=== PATIENT | female | born 1985 | race Caucasian/White ===

== ENCOUNTER 2024-07-02 11:48 | Inpatient (IN) | payer BC, SELFPAY ==
[2024-07-02] VITALS (48 sets, daily range): BP systolic 98–147; BP diastolic 65–97; PULSE 102–134; RESP 14–28; TEMP 36.7–37.1; O2SAT 91–100; BMI 25.7; BMI 25.4
--- NOTE | 2024-07-02 13:08 | CT_ITS ---
WS: [id number] CT ABDOMEN AND PELVIS WITH CONTRAST HISTORY: hx of nec pancreatitis TECHNIQUE: Imaging performed of the abdomen and pelvis with IV contrast. Single phase imaging of the abdomen. Coronal and sagittal reformats are submitted. All CT scans at [facility] use at [address] one of these dose optimization techniques: automated exposure control; mA and/or kV adjustment per patient size (includes targeted exams where dose is matched to clinical indication); or iterative re construction. IV CONTRAST: Omnipaque 350; 100 mL IV. Oral contrast: No DLP: 504.83 mGy.cm COMPARISON: None available. Lower thorax: Volume loss and atelectasis at the lung bases. There is mild pleural thickening at the LEFT base and a tiny amount of fluid. Heart is normal size. No hiatal hernia. Liver/biliary system: Hepatic steatosis. Intrahepatic biliary air. Gallbladder: Prior cholecystectomy. There is a stent along the common bile duct. Pancreas: Atrophy. There are a few very tiny cystic areas along the pancreatic duct. The pancreatic d uct is very mildly prominent. No mass identified. Tiny fluid collection posterior to the distal pancr eatic tail measures 1.1 x 1.3 cm. Spleen: Normal size spleen. No mass or infarct. Adrenal glands: Normal RIGHT adrenal gland. LEFT adrenal gland appears normal. Right kidney: RIGHT kidney is normal size. There are a few tiny cortical hypodensities. There is emilia ed soft tissue thickening in the retroperitoneum. The thickening is along the anterior and posterior pararenal fascia and along the lateroconal fascia. There is a percutaneous drainage catheter entering anterior to the RIGHT kidney with the catheter extending inferiorly to terminate in the presacral re gion. There is continued soft tissue thickening with distortion of the normal architecture of the RIG HT psoas muscle and a small amount of fluid. Left kidney: Negative. There is mild soft tissue thickening along the along the lateral conal fascia and the posterior pararenal fascia. There is a prior tract in the soft tissues posterior to the LEFT kidney with no drainage catheter present. Aorta: Normal. Lymphadenopathy: There are a few mildly hypervascular lymph nodes in the RIGHT pelvis along the ingui nal region and anterior pelvis. These are probably reactive. Free fluid: There is a small amount of free fluid in the pelvis. GI tract: Nondistended stomach. By history of prior gastric bypass. Mildly dilated small bowel loops with fluid. Small bowel loops are measuring up to 2.3 cm. At this time there is no high-grade obstruc tion. Several of the small bowel loops are closely associated with soft tissue thickening in extendin g along the paracolic gutter into the pelvis. Abdominal wall: Postsurgical changes along the anterior abdominal wall. Additional prior surgical or drainage defects along the RIGHT lateral abdominal wall. Pelvis: Mild soft tissue thickening extending along the RIGHT pelvis with presacral soft tissue thick ening. Within the soft tissue thickening is a pigtail catheter. This is a catheter that enters over t he RIGHT lateral abdomen. Uterus is anteverted. There is a small amount of free fluid along the tract . Several small low-attenuation lesions within the uterus. These may be fibroids. Bones: Unremarkable. CT/CT abdomen pelvis w con* [id number] IMPRESSION: 1. No prior studies are available and very limited surgical or clinical histor y concerning this complicated CT evaluation. 2. Prior cholecystectomy with a small amount of pneumobilia. 3. Atrophic pancreas. Probably prior episodes of pancreatitis. No acute pancre atitis. There is a very tiny fluid like collection close to the posterior pancr eas measuring 1.1 x 1.3 cm which may be the residual of a pseudocyst. This appe ars to be a benign collection. 4. There is a common bile duct stent. No significant intrahepatic duct dilatat ion. 5. External drainage catheter begins along the RIGHT lateral abdominal wall wi th the catheter extending deep into the pelvis. Catheter is coiled in the freda cral space. Adjacent to the pigtail catheter is complex soft tissue thickening but no definite abscess. 6. There is marked soft tissue thickening in the RIGHT anterior and posterior pararenal fascia with extensive soft tissue thickening extending along the RIGH T psoas muscle. Loss of the normal architecture of the RIGHT psoas muscle with scarring extending into the pelvis. 7. Mild LEFT pararenal fascial thickening. 8. Small LEFT pleural effusion. 9. Adverse change or improvement cannot be determined without prior imaging st udies.
--- NOTE | 2024-07-02 13:11 | W.ED.ABDPA2 ---
Documented by User: Naga Blank 07/03/24 06:22 HPI - Abdominal Pain General: Chief Complaint: Fever Stated Complaint: Fever Time Seen by Provider: 07/02/24 12:17 Source: patient and family Mode of arrival: ambulatory Limitations: no limitations History of Present Illness: This patient presented to the emergency department with fever and increased abdominal pain. She has very complicated history. 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 This resulted in a very prolonged hospital stay at the [facility] then subsequently at [facility] in [place]. She has been in the hospital off and on with various complications from her procedure which is resulted in resection of her pancreas with indwelling drain to the pancreatic bed as well as a other drain in her left flank. She was subsequently transferred to long-term care for rehabilitation and has been home for approximately 2 weeks. Last night she developed fever and increased heart rate and increasing abdominal pain. There is no other symptoms to include cough dysuria sore throat etc. MD elicited complaint: abdominal pain Associated Symptoms: Reports chills and fever(s); Denies diarrhea, dysuria, nausea and vomiting Related Data Home Medications Medication Instructions Recorded Confirmed acetaminophen 325 mg capsule 650 mg PO QID PRN pain or fever 07/02/24 07/02/24 (Tylenol) apixaban 5 mg tablet (Eliquis) 5 mg PO DAILY 07/02/24 07/02/24 furosemide 20 mg tablet 20 mg PO DAILY PRN LOWER 07/02/24 07/02/24 EXTREMITIES potassium chloride 20 mEq 20 meq PO DAILY 07/02/24 07/02/24 tablet,extended release promethazine 12.5 mg tablet 12.5 mg PO PRN PRN Nausea And 07/02/24 07/02/24 Vomiting sennosides 8.6 mg-docusate sodium 1 tab PO PRN PRN Constipation 07/02/24 07/02/24 50 mg tablet (Senexon-S) venlafaxine 150 mg 150 mg PO DAILY 07/02/24 07/02/24 capsule,extended release 24 hr venlafaxine 150 mg 150 mg PO DAILY 07/02/24 07/02/24 capsule,extended release 24 hr Allergies Allergy/AdvReac Type Severity Reaction Status Date / Time gabapentin Allergy Unknown Verified 07/02/24 11:58 benzoyl peroxide AdvReac Mild unknown Verified 07/02/24 11:58 Review of Systems Const: Reports: fever(s) and chills ENMT: Denies: throat pain, odynophagia, nasal discharge or nasal congestion Card: Denies: chest pain, palpitations or irregular heart rhythm Resp: Denies: dyspnea, productive cough or non-productive cough GI: Denies: abdominal pain, nausea, vomiting or diarrhea : Denies: flank pain, difficulty voiding, dysuria or urinary frequency Musc: Denies: neck pain, back pain, extremity pain or extremity swelling Skin/Breast: Denies: rash or pruritus Neuro: Denies: numbness in extremities or weakness in extremities Endo: Denies: polyuria or polydipsia Syed/Lymph: Denies: easy bruising or easy bleeding All/Imm: Denies: urticaria PFSH ED PFSH: Medical History History of biliary stent insertion Anxiety and depression Surgical History History of pancreatectomy History of bariatric surgery Family History Other CAD (coronary artery disease) Cancer Diabetes Social History Smoking and tobacco/nicotine status: never used tobacco/nicotine Alcohol intake: never Substance/Drug Use: never Physical Exam Narrative: EXAM NARRATIVE: He is alert appears to be in no acute distress and cooperative during the intake evaluation Const: COMMON NORMALS: patient oriented x3 and alert GENERAL APPEARANCE: cooperative HENMT: COMMON NORMALS: Normal nasal mucous membranes and turbinates present, moist oral mucous membranes and oropharynx normal FACE & SINUS: normal facial exam NOSE: Normal nasal mucous membranes and turbinates present Eye: COMMON NORMALS: Equal, round and reactive pupils present, EOMs intact bilaterally and conjunctivae normal CONJUNCTIVA: Yes conjunctivae normal PUPIL: Yes Equal, round and reactive pupils present Neck/C-Spine: COMMON NORMALS: full ROM, no lymphadenopathy, supple and no meningeal signs Resp: COMMON NORMALS: normal respiratory effort, No retractions, No use of accessory muscles and clear to auscultation bilaterally AUSCULTATION: clear to auscultation bilaterally Cardio: COMMON NORMALS: regular rhythm, No murmurs present (Cardio) and Peripheral pulses 2+ throughout RATE: tachycardic RHYTHM: regular rhythm PERIPHERAL PULSES: Peripheral pulses 2+ throughout GI: OTHER: Abdominal examination reveals evidence of previous midline incision with a dressing over the midportion of her upper abdominal incision. She also has a drain in her left flank which is draining minimal amount of serous fluid. She also has a drain in her right upper quadrant which is draining yellowish fluid which appears to be serous in nature without any obvious sediment. : COMMON NORMALS: Yes no CVA tenderness BLADDER/KIDNEY EXAM: Yes no CVA tenderness Back/Pelvis: COMMON NORMALS: no CVA tenderness, thoracic and lumbar spine normal to inspection, no thoracic nor lumbar tenderness and thoraco-lumbar ROM normal Extremity: COMMON NORMALS: normal to inspection, full ROM, capillary refill normal, no calf tenderness and no pedal edema Neuro: COMMON NORMALS: patient oriented x3, moves all extremities and no focal motor deficits SENSORIUM/ORIENTATION: Yes alert MENINGEAL SIGNS: Yes no meningeal signs Psych: COMMON NORMALS: mental status grossly normal Skin: COMMON NORMALS: turgor normal, no jaundice, no petechiae and no mottling GENERAL SKIN EXAM: turgor normal Course Reevaluation(s): Reevaluation #1: Patient remains clinically stable albeit still remains tachycardic but still receiving IV fluids and is receiving a loading dose of meropenem. Initially this was ordered prior to the return of the urinalysis due to her history of necrotizing pancreatitis. Time: 16:47 Reevaluation #2: Calls placed at [facility] for consultation regarding this patient's imaging and other factors which may contribute to whether this patient needs to be transferred to that facility or can remain at this facility for care for her pyelonephritis. Patient will be turned over to overnight emergency department physician for disposition. Time: 18:10 Vital Signs: Vital signs: Vital Signs Temperature 99.1 F 07/03/24 04:30 Pulse Rate 124 H 07/03/24 06:02 Respiratory Rate 24 H 07/03/24 04:00 Blood Pressure 122/88 07/03/24 04:00 Pulse Oximetry 100 07/03/24 04:00 Oxygen Delivery Me thod Nasal Cannula 07/03/24 04:30 Oxygen Flow Rate 2 07/03/24 04:30 MDM - Abdominal Pain Medical Decision Making Patient presented to the emergency department as per the HPI with a history of fevers and back pain. Longstanding history of multiple surgeries for necrotizing pancreatitis. Workup initiated to evaluate for potential causes of fever and tachycardia to include urinary tract infection intra-abdominal infection other potential causes. Did not display any symptoms of upper respiratory infection, pharyngitis, cough etc. at the time of the initial evaluation. Imaging was obtained as well as ancillary studies urinalysis etc. Due to her complicated history consultations were obtained at the attending staff from [facility] regarding her current clinical condition and comparison with prior interactions at that facility. Patient presenting here and does have acute cystitis along with likely cellulitis hypomagnesia hypokalemia did attempt to transfer to [facility] place her on waiting list and did speak to hospitalist here who will admit at this time. Lab Data I reviewed the patient's lab results. 07/02/24 13:23 07/02/24 21:02 Labs/Radiology: Radiology Impressions Abdomen/Pelvis CT 07/02/24 13:08 IMPRESSION: 1. No prior studies are available and very limited surgical or clinical history concerning this complicated CT evaluation. 2. Prior cholecystectomy with a small amount of pneumobilia. 3. Atrophic pancreas. Probably prior episodes of pancreatitis. No acute pancreatitis. There is a very tiny fluid like collection close to the posterior pancreas measuring 1.1 x 1.3 cm which may be the residual of a pseudocyst. This appears to be a benign collection. 4. There is a common bile duct stent. No significant intrahepatic duct dilatation. 5. External drainage catheter begins along the RIGHT lateral abdominal wall with the catheter extending deep into the pelvis. Catheter is coiled in the presacral space. Adjacent to the pigtail catheter is complex soft tissue thickening but no definite abscess. 6. There is marked soft tissue thickening in the RIGHT anterior and posterior pararenal fascia with extensive soft tissue thickening extending along the RIGHT psoas muscle. Loss of the normal architecture of the RIGHT psoas muscle with scarring extending into the pelvis. 7. Mild LEFT pararenal fascial thickening. 8. Small LEFT pleural effusion. 9. Adverse change or improvement cannot be determined without prior imaging studies. Femur CT 07/02/24 20:07 IMPRESSION: 1. Mild right hip edema, otherwise no acute right lower extremity abnormality. 2. Redemonstration of the dense intraperitoneal fluid extending into the pelvis with surgical drain in place. Laboratory Results WBC 14.53 10^3/uL (3.29-11.43) H 07/02/24 13:23 RBC 3.54 10^6/uL (3.85-5.65) L 07/02/24 13:23 Hgb 11.00 g/dL (11.27-16.99) L 07/02/24 13:23 Hct 34.9 % (36-47) L 07/02/24 13:23 MCV 98.6 fl (85-98) H 07/02/24 13:23 MCH 31.1 pg (27-33) 07/02/24 13:23 MCHC 31.5 g/dL (30-55) 07/02/24 13:23 RDW 14.3 % (12.1-15.1) 07/02/24 13:23 Plt Count 425 10^3/cmm (157-399) H 07/02/24 13:23 MPV 9.0 fL (7.4-10.4) 07/02/24 13:23 Neut % (Auto) 91.0 % 07/02/24 13:23 Lymph % (Auto) 5.5 % 07/02/24 13:23 Bland % (Auto) 2.8 % 07/02/24 13:23 Eos % (Auto) 0.0 % 07/02/24 13:23 Baso % (Auto) 0.1 % 07/02/24 13:23 Neut # (Auto) 13.22 10^3/uL (1.8-7.7) H 07/02/24 13:23 Lymph # (Auto) 0.8 10^3/uL (0.8-4.8) 07/02/24 13:23 Bland # (Auto) 0.4 10^3/uL (0.2-0.9) 07/02/24 13:23 Eos # (Auto) 0.0 10^3/uL (0.0-0.8) 07/02/24 13:23 Baso # (Auto) 0.0 10^3/uL (0.0-0.1) 07/02/24 13:23 Nucleated RBC % (auto) 0 % 07/02/24 13:23 Nucleated RBCs # 0.0 /100WBC 07/02/24 13:23 ESR 42 mm/hr (0-15) H 07/02/24 13:23 Sodium 137 mmol/L (136-145) 07/02/24 13:23 Potassium 2.8 mmol/L (3.5-5.1) L* 07/02/24 19:12 Chloride 95 mmol/L (98-107) L 07/02/24 13:23 Carbon Dioxide 30 mmol/L (22-29) H 07/02/24 13:23 Anion Gap 14.6 (5-19) 07/02/24 13:23 BUN 10 mg/dL (6-20) 07/02/24 13:23 Creatinine 0.5 mg/dL (0.5-0.9) 07/02/24 13:23 GFR Calculation 137.4 mL/min (90-130) H 07/02/24 13:23 Glucose 105 mg/dL (65-115) 07/02/24 13:23 Calculated Osmolality 283 mOsm/kg (285-295) L 07/02/24 13:23 Lactic Acid 3.9 mmol/L (0.5-2.2) H 07/02/24 13:23 Lactic Acid (Sepsis) 2.5 mmol/L (0.5-2.2) H 07/02/24 16:55 Calcium 7.8 mg/dL (8.5-10.5) L 07/02/24 13:23 Magnesium 1.0 mg/dL (1.7-2.3) L 07/02/24 13:23 Total Bilirubin 0.4 mg/dL (0.15-1.2) 07/02/24 13:23 AST 40 U/L (0-32) H 07/02/24 13:23 ALT 24 U/L (0-33) 07/02/24 13:23 Alkaline Phosphatase 143 U/L (35-105) H 07/02/24 13:23 Creatine Kinase 19 U/L (26-192) L 07/02/24 19:12 C-Reactive Protein 186.8 mg/L (0.0-4.9) H 07/02/24 19:12 Total Protein 6.9 g/dL (6.6-8.7) 07/02/24 13:23 Albumin 2.7 g/dL (3.5-5.2) L 07/02/24 13:23 Globulin 4.2 g/dL (1.3-4.6) 07/02/24 13:23 Lipase 17 U/L (13-60) 07/02/24 13:23 Procalcitonin 0.26 ng/mL (0-0.5) 07/02/24 19:12 HCG, Qual Negative (Negative) 07/02/24 15:37 Urine Color Yellow (Yellow) 07/02/24 15:37 Urine Appearance Cloudy (CLEAR) A 07/02/24 15:37 Urine pH 7.0 (5-7) 07/02/24 15:37 Ur Specific Cable 1.045 (1.005-1.030) H 07/02/24 15:37 Urine Protein 1+ (Negative) A 07/02/24 15:37 Urine Glucose (UA) Negative (Normal) 07/02/24 15:37 Urine Ketones Negative (Negative) 07/02/24 15:37 Urine Blood Trace (Negative) A 07/02/24 15:37 Urine Nitrate Negative (Negative) 07/02/24 15:37 Urine Bilirubin Negative (Negative) 07/02/24 15:37 Urine Urobilinogen 1.0 mg/dL (Negative) 07/02/24 15:37 Ur Leukocyte Esterase 2+ (Negative) A 07/02/24 15:37 Urine RBC 0-2 /hpf (0-2) 07/02/24 15:37 Urine WBC >100 /hpf (0-5) H 07/02/24 15:37 Ur Squamous Epith Cells 0-5 /hpf (0-5) 07/02/24 15:37 Amorphous Sediment Not Reportable 07/02/24 15:37 Urine Bacteria 4+ /hpf (NONE) H 07/02/24 15:37 Hyaline Casts 2.87 /lpf 07/02/24 15:37 SARS-CoV-2 Ag (Rapid) negative (Negative) 07/02/24 14:00 EKG Data EKG 1: I personally reviewed and interpreted this EKG as follows: Interpretation: Resting EKG reveals ventricular rate of 120 bpm consistent with sinus tachycardia. She has a normal GA interval, QRS duration, corrected QT interval. Normal axis. She has some nonspecific ST-T wave flattening. Discharge Plan Discharge Patient Disposition: Admitted As Inpatient Admit Provider: Manuelito Zuñiga Clinical Impression: Pyelonephritis, Hypomagnesemia, Hypokalemia Condition: Stable Coding Level of Care Code ED Title Vehicle Service Attendant for [employer] Fwd Documented by User: Jean-Paul Jay MD 07/02/24 22:29 HPI - Abdominal Pain General: Chief Complaint: Fever Stated Complaint: Fever Time Seen by Provider: 07/02/24 12:17 Related Data Home Medications Medication Instructions Recorded Confirmed acetaminophen 325 mg capsule 650 mg PO QID PRN pain or fever 07/02/24 07/02/24 (Tylenol) apixaban 5 mg tablet (Eliquis) 5 mg PO DAILY 07/02/24 07/02/24 furosemide 20 mg tablet 20 mg PO DAILY PRN LOWER 07/02/24 07/02/24 EXTREMITIES potassium chloride 20 mEq 20 meq PO DAILY 07/02/24 07/02/24 tablet,extended release promethazine 12.5 mg tablet 12.5 mg PO PRN PRN Nausea And 07/02/24 07/02/24 Vomiting sennosides 8.6 mg-docusate sodium 1 tab PO PRN PRN Constipation 07/02/24 07/02/24 50 mg tablet (Senexon-S) venlafaxine 150 mg 150 mg PO DAILY 07/02/24 07/02/24 capsule,extended release 24 hr venlafaxine 150 mg 150 mg PO DAILY 07/02/24 07/02/24 capsule,extended release 24 hr Allergies Allergy/AdvReac Type Severity Reaction Status Date / Time gabapentin Allergy Unknown Verified 07/02/24 11:58 benzoyl peroxide AdvReac Mild unknown Verified 07/02/24 11:58 [facility] ED PFSH: Medical History History of biliary stent insertion Anxiety and depression Surgical History History of pancreatectomy History of bariatric surgery Family History Other CAD (coronary artery disease) Cancer Diabetes Social History Smoking and tobacco/nicotine status: never used tobacco/nicotine Alcohol intake: never Substance/Drug Use: never Course Vital Signs: Vital signs: Vital Signs Temperature 99.1 F 07/03/24 04:30 Pulse Rate 124 H 07/03/24 06:02 Respiratory Rate 24 H 07/03/24 04:00 Blood Pressure 122/88 07/03/24 04:00 Pulse Oximetry 100 07/03/24 04:00 Oxygen Delivery Me thod Nasal Cannula 07/03/24 04:30 Oxygen Flow Rate 2 07/03/24 04:30 MDM - Abdominal Pain Medical Decision Making Patient presented to the emergency department as per the HPI with a history of fevers and back pain. Longstanding history of multiple surgeries for necrotizing pancreatitis. Patient presenting here and does have acute cystitis along with likely cellulitis hypomagnesia hypokalemia did attempt to transfer to [facility] place her on waiting list and did speak to hospitalist here who will admit at this time. Lab Data 07/02/24 13:23 07/02/24 21:02 Labs/Radiology: Radiology Impressions Abdomen/Pelvis CT 07/02/24 13:08 IMPRESSION: 1. No prior studies are available and very limited surgical or clinical history concerning this complicated CT evaluation. 2. Prior cholecystectomy with a small amount of pneumobilia. 3. Atrophic pancreas. Probably prior episodes of pancreatitis. No acute pancreatitis. There is a very tiny fluid like collection close to the posterior pancreas measuring 1.1 x 1.3 cm which may be the residual of a pseudocyst. This appears to be a benign collection. 4. There is a common bile duct stent. No significant intrahepatic duct dilatation. 5. External drainage catheter begins along the RIGHT lateral abdominal wall with the catheter extending deep into the pelvis. Catheter is coiled in the presacral space. Adjacent to the pigtail catheter is complex soft tissue thickening but no definite abscess. 6. There is marked soft tissue thickening in the RIGHT anterior and posterior pararenal fascia with extensive soft tissue thickening extending along the RIGHT psoas muscle. Loss of the normal architecture of the RIGHT psoas muscle with scarring extending into the pelvis. 7. Mild LEFT pararenal fascial thickening. 8. Small LEFT pleural effusion. 9. Adverse change or improvement cannot be determined without prior imaging studies. Femur CT 07/02/24 20:07 IMPRESSION: 1. Mild right hip edema, otherwise no acute right lower extremity abnormality. 2. Redemonstration of the dense intraperitoneal fluid extending into the pelvis with surgical drain in place. Laboratory Results WBC 14.53 10^3/uL (3.29-11.43) H 07/02/24 13:23 RBC 3.54 10^6/uL (3.85-5.65) L 07/02/24 13:23 Hgb 11.00 g/dL (11.27-16.99) L 07/02/24 13:23 Hct 34.9 % (36-47) L 07/02/24 13:23 MCV 98.6 fl (85-98) H 07/02/24 13:23 MCH 31.1 pg (27-33) 07/02/24 13:23 MCHC 31.5 g/dL (30-55) 07/02/24 13:23 RDW 14.3 % (12.1-15.1) 07/02/24 13:23 Plt Count 425 10^3/cmm (157-399) H 07/02/24 13:23 MPV 9.0 fL (7.4-10.4) 07/02/24 13:23 Neut % (Auto) 91.0 % 07/02/24 13:23 Lymph % (Auto) 5.5 % 07/02/24 13:23 Bland % (Auto) 2.8 % 07/02/24 13:23 Eos % (Auto) 0.0 % 07/02/24 13:23 Baso % (Auto) 0.1 % 07/02/24 13:23 Neut # (Auto) 13.22 10^3/uL (1.8-7.7) H 07/02/24 13:23 Lymph # (Auto) 0.8 10^3/uL (0.8-4.8) 07/02/24 13:23 Bland # (Auto) 0.4 10^3/uL (0.2-0.9) 07/02/24 13:23 Eos # (Auto) 0.0 10^3/uL (0.0-0.8) 07/02/24 13:23 Baso # (Auto) 0.0 10^3/uL (0.0-0.1) 07/02/24 13:23 Nucleated RBC % (auto) 0 % 07/02/24 13:23 Nucleated RBCs # 0.0 /100WBC 07/02/24 13:23 ESR 42 mm/hr (0-15) H 07/02/24 13:23 Sodium 137 mmol/L (136-145) 07/02/24 13:23 Potassium 2.8 mmol/L (3.5-5.1) L* 07/02/24 19:12 Chloride 95 mmol/L (98-107) L 07/02/24 13:23 Carbon Dioxide 30 mmol/L (22-29) H 07/02/24 13:23 Anion Gap 14.6 (5-19) 07/02/24 13:23 BUN 10 mg/dL (6-20) 07/02/24 13:23 Creatinine 0.5 mg/dL (0.5-0.9) 07/02/24 13:23 GFR Calculation 137.4 mL/min (90-130) H 07/02/24 13:23 Glucose 105 mg/dL (65-115) 07/02/24 13:23 Calculated Osmolality 283 mOsm/kg (285-295) L 07/02/24 13:23 Lactic Acid 3.9 mmol/L (0.5-2.2) H 07/02/24 13:23 Lactic Acid (Sepsis) 2.5 mmol/L (0.5-2.2) H 07/02/24 16:55 Calcium 7.8 mg/dL (8.5-10.5) L 07/02/24 13:23 Magnesium 1.0 mg/dL (1.7-2.3) L 07/02/24 13:23 Total Bilirubin 0.4 mg/dL (0.15-1.2) 07/02/24 13:23 AST 40 U/L (0-32) H 07/02/24 13:23 ALT 24 U/L (0-33) 07/02/24 13:23 Alkaline Phosphatase 143 U/L (35-105) H 07/02/24 13:23 Creatine Kinase 19 U/L (26-192) L 07/02/24 19:12 C-Reactive Protein 186.8 mg/L (0.0-4.9) H 07/02/24 19:12 Total Protein 6.9 g/dL (6.6-8.7) 07/02/24 13:23 Albumin 2.7 g/dL (3.5-5.2) L 07/02/24 13:23 Globulin 4.2 g/dL (1.3-4.6) 07/02/24 13:23 Lipase 17 U/L (13-60) 07/02/24 13:23 Procalcitonin 0.26 ng/mL (0-0.5) 07/02/24 19:12 HCG, Qual Negative (Negative) 07/02/24 15:37 Urine Color Yellow (Yellow) 07/02/24 15:37 Urine Appearance Cloudy (CLEAR) A 07/02/24 15:37 Urine pH 7.0 (5-7) 07/02/24 15:37 Ur Specific Cable 1.045 (1.005-1.030) H 07/02/24 15:37 Urine Protein 1+ (Negative) A 07/02/24 15:37 Urine Glucose (UA) Negative (Normal) 07/02/24 15:37 Urine Ketones Negative (Negative) 07/02/24 15:37 Urine Blood Trace (Negative) A 07/02/24 15:37 Urine Nitrate Negative (Negative) 07/02/24 15:37 Urine Bilirubin Negative (Negative) 07/02/24 15:37 Urine Urobilinogen 1.0 mg/dL (Negative) 07/02/24 15:37 Ur Leukocyte Esterase 2+ (Negative) A 07/02/24 15:37 Urine RBC 0-2 /hpf (0-2) 07/02/24 15:37 Urine WBC >100 /hpf (0-5) H 07/02/24 15:37 Ur Squamous Epith Cells 0-5 /hpf (0-5) 07/02/24 15:37 Amorphous Sediment Not Reportable 07/02/24 15:37 Urine Bacteria 4+ /hpf (NONE) H 07/02/24 15:37 Hyaline Casts 2.87 /lpf 07/02/24 15:37 SARS-CoV-2 Ag (Rapid) negative (Negative) 07/02/24 14:00 All radiology interpretation(s) finalized by discharge Critical Care Time Critical Care Time: Critical Care Time: Yes Total Critical Care Time: 50 Attestation: The high probability of a clinically significant, sudden or life threatening deterioration of the patient's gu system(s) required my full and direct attention, intervention and personal management. The critical care time is as shown. 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
[2024-07-02 13:35] LABS: Basophils % 0.1 %; Hematocrit 34.9 % (36-47); Lymphocytes # 0.8 10^3/uL (0.8-4.8); Lymphocytes % 5.5 %; Mean Corpuscular HGB Conc 31.5 g/dL (30-55); Mean Corpuscular Hemoglobin 31.1 pg (27-33); Mean Corpuscular Volume 98.6 fl (85-98); Monocytes # 0.4 10^3/uL (0.2-0.9); Monocytes % 2.8 %; Neutrophils # 13.22 10^3/uL (1.8-7.7); Nucleated Red Blood Cells % 0 %; Platelet Count 425 10^3/cmm (157-399); Red Blood Count 3.54 10^6/uL (3.85-5.65); Red Cell Distribution Width 14.3 % (12.1-15.1); White Blood Count 14.53 10^3/uL (3.29-11.43)
[2024-07-02] MEDS: HYDROmorphone 1 mg/mL INJ 1 mL 0.5 MG IVP (13:44)
[2024-07-02] MEDS: lactated ringers 1,000 ML 999 ML IV ×2 (13:46→16:02)
[2024-07-02] MEDS: metoclopramide 5 mg/mL SDV 2 mL IVP (13:47)
[2024-07-02 13:54] LABS: Lactic Sepsis W/Reflex 3.9 mmol/L (0.5-2.2)
[2024-07-02 13:55] LABS: Alanine Aminotransferase 24 U/L (0-33); Albumin Level 2.7 g/dL (3.5-5.2); Alkaline Phosphatase 143 U/L (35-105); Anion Gap 14.6 (5-19); Aspartate Amino Transferase 40 U/L (0-32); Blood Urea Nitrogen 10 mg/dL (6-20); Calcium 7.8 mg/dL (8.5-10.5); Carbon Dioxide 30 mmol/L (22-29); Chloride 95 mmol/L (98-107); Creatinine Clr Calc Pharmacy 148.6226; Globulin 4.2 g/dL (1.3-4.6); Glomerular Filtration Rate 137.4 mL/min (90-130); Glucose 105 mg/dL (65-115); Lipase 17 U/L (13-60); Osmolality Calculated 283 mOsm/kg (285-295); Sodium 137 mmol/L (136-145); Total Bilirubin 0.4 mg/dL (0.15-1.2); Total Protein 6.9 g/dL (6.6-8.7)
[2024-07-02 13:56] LABS: Potassium 2.6 mmol/L (3.5-5.1)
[2024-07-02] MEDS: iohexol 350 mg/mL 500 mL Btl (per mL) IV ×2 (14:12→22:03)
[2024-07-02 14:25] LABS: SARS Covid-2 Antigen negative (Negative)
--- NOTE | 2024-07-02 15:16 | ECG_ITS ---
[facility] Test Date: 2024-07-02 Pat Name: Maddie Darby Department: Room: Gender: Female Retail Beauty Specialist: : 1985 Requested By: Naga Blank Order Number: [id number] Samuel MD: ALLY GOVEA Measurements Intervals [place] Rate: 128 P: 26 MS: 118 QRS: 64 QRSD: 72 T: 46 QT: 334 QTc: 488 Interpretive Statements SINUS TACHYCARDIA WITH SHORT MS INTERVAL NONSPECIFIC T-WAVE ABNORMALITY ABNORMAL RHYTHM ECG No previous ECG available for comparison Electronically Signed On 07-03-2024 00:11:34 CDT by ALLY GOVEA [email or web address]
[2024-07-02 15:17] LABS: Reflex Lactate Order REFLEX LACTIC ORDERD
[2024-07-02 15:46] LABS: HCG Qualitative Urine. Negative (Negative)
[2024-07-02] MEDS: potassium bicarb 25 mEq Tablet 50 MEQ PO (15:47)
[2024-07-02 15:58] LABS: Bilirubin Urine Negative (Negative); Blood Urine Trace (Negative); Glucose Urine UA Negative (Normal); Ketones Urine Negative (Negative); Leukocyte Esterase Urine 2+ (Negative); Nitrate Urine Negative (Negative); Protein Urine 1+ (Negative); Urine Appearance Cloudy (CLEAR); Urine Color Yellow (Yellow)
[2024-07-02 16:04] LABS: Add Urine Microscopic? YES; Bacteria Urine 4+ /hpf; Hyaline Casts Urine 2.87 /lpf; RBC Urine 0-2 /hpf (0-2); Squamous Epithelial Cell Urine 0-5 /hpf (0-5); WBC Urine >100 /hpf (0-5)
[2024-07-02 16:05] LABS: Specific Gravity, Urine 1.045 (1.005-1.030)
[2024-07-02 16:06] LABS: Add Urine Culture? Yes
[2024-07-02 17:24] LABS: Lactic Acid level (Lactate) 2.5 mmol/L (0.5-2.2)
[2024-07-02] MEDS: HYDROmorphone 1 mg/mL INJ 1 mL IVP ×3 (17:53→23:34)
[2024-07-02] MEDS: magnesium sulfate premix 2 GM/50 ML PIGGYBACK IV (17:53)
[2024-07-02] MEDS: meropenem 500 mg SDV IVP ×2 (17:53→23:01)
[2024-07-02] MEDS: acetaminophen 325 mg Tablet 650 MG PO (18:01)
--- NOTE | 2024-07-02 18:11 | XRR_ITS ---
PROCEDURE INFORMATION: Exam: XR Chest Exam date and time: 07/02/2024 6:15 PM Age: 39 years old Clinical indication: Fever TECHNIQUE: Imaging protocol: Radiologic exam of the chest. Views: 1 view. COMPARISON: CT abdomen pelvis w con* [id number] 07/02/2024 2:09 PM FINDINGS: Lungs: Unremarkable. No consolidation. Pleural spaces: Unremarkable. No pleural effusion. No pneumothorax. Heart/Mediastinum: Unremarkable. No cardiomegaly. Bones/joints: Unremarkable. XR/XR chest 1V portable [id number] IMPRESSION: No acute findings.
[2024-07-02] MEDS: vancomycin 1,000 MG in sodium chloride 0.9% 250 ML 250 MG IV (19:09)
[2024-07-02] MEDS: sodium chloride 0.9% 500 ML 999 ML IV (19:10)
[2024-07-02 19:35] LABS: Potassium 2.8 mmol/L (3.5-5.1)
[2024-07-02 19:37] LABS: Erythrocyte Sedimentation Rate 42 mm/hr (0-15)
[2024-07-02 19:48] LABS: C Reactive Protein 186.8 mg/L (0.0-4.9)
[2024-07-02 19:56] LABS: Procalcitonin 0.26 ng/mL (0-0.5)
--- NOTE | 2024-07-02 20:07 | CTR_ITS ---
PROCEDURE INFORMATION: Exam: CT Right Lower Extremity, Thigh Exam date and time: 07/02/2024 9:54 PM Age: 39 years old Clinical indication: Swelling, leg or foot; Prior surgery; Surgery date: 6+ months; Patient HX: Swelling and redness to RT hip extending down mid outer thigh. Peritoneal catheter drain in place for necrotizing pancreatitis. ; Additional info: Swelling, soft tissue thickening TECHNIQUE: Imaging protocol: CT of the right lower extremity with intravenous contrast was performed. Exam focused on the thigh. Radiation optimization: All CT scans at this facility use at least one of these dose optimization techniques: automated exposure control; mA and/or kV adjustment per patient size (includes targeted exams where dose is matched to clinical indication); or iterative reconstruction. Contrast material: OMNI 350; Contrast volume: 80 ml; Contrast route: INTRAVENOUS (IV); COMPARISON: CT abdomen pelvis w con* [id number] 07/02/2024 2:09 PM RADIATION DOSE METRICS: Total DLP (mGy-cm): 622.19 FINDINGS: Tubes, catheters and devices: Pigtail surgical drain extending into the pelvis. Bones/joints: Normal. No acute fracture or dislocation. Trace right knee effusion. Soft tissues: Mild skin thickening and subcutaneous edema in the right hip. Lymph nodes: Right iliac chain lymphadenopathy measuring up to 1.2 cm (series 3, image 35). Intraperitoneal space: Moderate free fluid extending into the pelvis. Urinary bladder: Contrast filled bladder. Reproductive: Hypodense nodularity in the myometrium measuring 1.4 x 1.4 cm (series 3, image 17) likely representing a fibroid. CT/CT femur RT w con [id number] IMPRESSION: 1. Mild right hip edema, otherwise no acute right lower extremity abnormality. 2. Redemonstration of the dense intraperitoneal fluid extending into the pelvis with surgical drain in place.
[2024-07-02 20:12] LABS: Creatine Phosphokinase 19 U/L (26-192)
[2024-07-02] MEDS: sodium chloride 0.9% 1,000 ML 75 ML IV (21:28)
[2024-07-02] MEDS: pantoprazole 40 mg SDV IVP (21:29)
--- NOTE | 2024-07-02 21:29 | P.HP_ITS ---
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 She had a prolonged hospital stay at [facility], then eventually transferred to [place], had pancreatic resection, she had a prolonged hospital stay at [facility] with multiple complications, complications including necrotizing fasciitis, resulting in drain placed into pancreatic bed, she was then transferred to long-term care [facility] in [place], she then had recurrent fevers and eventually transferred back to [place], had ERCP procedure done, with a biliary stent placed. She is now back at home, she tells me that she has been doing well for the last few weeks, she was on PEG tube feeds at 1 point, she is off PEG tube feeds, feeding orally. But in the last 24 hours she has had noticed that she started developing pain around her pancreatic drain site which she has never had before, increased erythema/tenderness/warmth at that site, and developing streaking erythema down her right hip, her right thigh, right groin, with erythema, tender, warmth, fevers, chills. She denies any dysuria, no hematuria, no flank pain, but does report increased urinary frequency. Denies any cough, no shortness of breath,. No neck pain, neck stiffness no headache no blurry vision. She tells me that around the pancreatic drain site, she has had increased drainage, purulent drainage her at bedside who does regular dressing changes, tells me that in the last 24 hours she has had increased purulent drainage around that site, looking more dark and brown. She also reports abdominal pain feeling nauseous, poor appetite. No diarrhea reported. Patient family tells me that the drain site, the fluid has been more purulent, more feculent in appearance -WBC count 14.53, platelet count 425 ESR 42, CRP 186, Pro-Tate within normal limits lipase within normal limits alk phos 143, AST 40, ALT 24 CPK 19 lactic acid 3.9 reflux to 2.5, urine was cloudy, with leukocyte Estrace and greater than [address] scan abdomen pelvis CT/CT abdomen pelvis w con* [id number] IMPRESSION: 1. No prior studies are available and very limited surgical or clinical history concerning this complicated CT evaluation. 2. Prior cholecystectomy with a small amount of pneumobilia. 3. Atrophic pancreas. Probably prior episodes of pancreatitis. No acute pancreatitis. There is a very tiny fluid like collection close to the posterior pancreas measuring 1.1 x 1.3 cm which may be the residual of a pseudocyst. This appears to be a benign collection. 4. There is a common bile duct stent. No significant intrahepatic duct dilatation. 5. External drainage catheter begins along the RIGHT lateral abdominal wall with the catheter extending deep into the pelvis. Catheter is coiled in the presacral space. Adjacent to the pigtail catheter is complex soft tissue thickening but no definite abscess. 6. There is marked soft tissue thickening in the RIGHT anterior and posterior pararenal fascia with extensive soft tissue thickening extending along the RIGHT psoas muscle. Loss of the normal architecture of the RIGHT psoas muscle with scarring extending into the pelvis. 7. Mild LEFT pararenal fascial thickening. 8. Small LEFT pleural effusion. 9. Adverse change or improvement cannot be determined without prior imaging studies. -ER provider spoke to [facility], Dr. Orville Black, who looked at prior studies, looked at images that were clouded over to [place], I was told by ER provider that there was no recommendation on transfer, that they felt there was no fluid to drain based on the CT scan results -Hospitals team was called for admission for concerns for UTI as a source -During my evaluation -Patient's major complaint was increased pain around her pancreatic drain site, with pain/erythema, swelling leading down the pancreatic drain site, along the right hip right inner thigh, right groin right buttocks. The site is quite erythematous, swollen, tender, with erythema, concerning for cellulitis, and given imaging findings as above concerning for deep tissue infection, given her prior history of necrotizing fasciitis, concerns for infection such as myositis, or deep tissue infection such as necrotizing fasciitis -Certainly the urine could be a source however the nitrites were negative, CT scan as above there was no radiographic evidence of pyelonephritis, as below Right kidney: RIGHT kidney is normal size. There are a few tiny cortical hypodensities. There is marked soft tissue thickening in the retroperitoneum. The thickening is along the anterior and posterior pararenal fascia and along the lateroconal fascia. There is a percutaneous drainage catheter entering anterior to the RIGHT kidney with the catheter extending inferiorly to terminate in the presacral region. There is continued soft tissue thickening with distortion of the normal architecture of the RIGHT psoas muscle and a small amount of fluid. Left kidney: Negative. There is mild soft tissue thickening along the along the lateral conal fascia and the posterior pararenal fascia. There is a prior tract in the soft tissues posterior to the LEFT kidney with no drainage catheter present. -No significant radiographic evidence of obstructive uropathy ? Based upon findings as above, I was worried about deep tissue infection, myositis, cellulitis, possible necrotizing fasciitis given her prior history -I had a detailed discussion with patient and her at bedside given her present findings, I would recommend for her to be transferred to a tertiary level center, given her complicated history, all her surgeries have been done at [place], and are limited availability here at [facility] we do not have GI we do not have hepatobiliary, and with her pancreatic drain in place, her case is quite complicated but I will certainly speak to [facility], and speak to our general surgery -Spoke to Jad FELDMAN, will have them look at their images, discussed my concerns for deep tissue infection, possible necrotizing fasciitis, ordered right hip CT, waiting a callback -Spoke to general surgery, Dr. Florentino, discussed my concerns discussed patient's presentation discussed CT scan findings, discussed her prior history, her current pancreatic drain, after discussing the case, he would also recommend for patient to be transferred to tertiary level center, concerns for possible bile leakage around drain site resulting in deep tissue infection, infection along fascial planes, possible necrotizing fasciitis she needs to be seen by her hepatobiliary team, general surgery, multidisciplinary team, team at [place], recommended transfer -I spoke to Dr. Orville Black -At [facility] -Discussed my concerns as above, discussed my concerns of her CT scan findings, her clinical examination, my overall concerns for deep tissue infection concerns for possible necrotizing fasciitis, discussed for my concerns around her pancreatic drain,, I think she needs better infection control potentially removal of pancreatic drain, IV antibiotics, discussion with her hepatobiliary team, possible surgical intervention, she is going to need a multidisciplinary team, which is not available here at [facility], discussed my concerns, - had reviewed images, he tells me that there is no fluid to drain, the drain is in the right position, he recommended IV antibiotics, and that currently there is no surgical intervention that is needed -I have voiced my concerns based on patient's clinical findings, CT scan findings, especially as she is starting to develop erythema developing down her right flank, down to her right thigh, concerns for deep tissue infection given CT scan findings of soft tissue thickening in the right anterior posterior pararenal fascia, with extensive soft tissue thickening extending along the right psoas muscle, loss of normal architecture of the right psoas muscle with scarring extending into the pelvis ? I feel that patient needs to be urgently seen by [facility], by hepatobiliary team, by physicians who have put in her drain, good infection control potentially drain removal, surgical intervention, a multidisciplinary team and on an urgent basis given morbidity mortality associated with deep tissue infections infection such as necrotizing fasciitis, and she is currently in the emergency room she is tachycardic, hypotensive, elevated lactic acid, she is septic, I believe she needs to be seen immediately, that delaying in her care would be associate with morbidity and mortality, would put patient at harm ? Dr. Nelson disagreed, he felt that patient does not need to come to [facility], there is nothing surgical that [facility] could offer, and that she needs IV antibiotics ? After extensive discussion with Dr. Nelson, I recommended urgent transfer for immediate evaluation, given my concerns as above, and our lack of subset specialty support here at [facility], in my discussions with general surgery, we do not have the multidisciplinary team the patient requires, given her present condition I am worried that she might develop significant morbidity mortality if she were to have delayed care -Nonetheless, patient was accepted Dr. Nelson, under Dr. Bhatia, however was placed on wait list for transfer -I spoke to the metal flow coordinator who is also on the line, and question this, patient is currently in the emergency room, and I would recommend ER to ER transfer given patient's present condition, patient's current illness, concerns for delay of care, bradycardia and mortality associated ? However I was told by metal flow coordinator that as patient is being admitted under Dr. Nelson care, they we will have to wait on the waiting list, ER to ER transfer is not possible -I voiced my concerns about this to metal flow coordinator, however I was told that patient will be placed on waiting list ? I spoke to patient and her about my concerns, my concerns for possible delay of care, morbidity and mortality associated, my concerns that patient needs a multidisciplinary team, needs more urgent evaluation, and that she is placed on a wait list, that could take some time before she would make it to [place] ? I also presented him the option of going to [facility] however they have declined ? After discussing with him the risks and benefits, for now they are okay with waiting to be transfer to [facility], okay with ICU admission, IV antibiotics, discussed risk and benefits, they voiced understanding, all questions were, agreed to proceed ? I also spoke to Dr. Yoselin Lucas to consult as there is concern for deep tissue infection, necrotizing fasciitis, will place patient on broad-spectrum antibiotic therapy monitor in ICU closely, monitor hemodynamics Review of Systems 2 Const: Reports: fever(s) and chills Card: Denies: chest pain Resp: Denies: dyspnea GI: Reports: abdominal pain and nausea : Reports: urinary frequency; Denies: flank pain, difficulty voiding or dysuria Musc: Reports: extremity pain and extremity swelling Skin/Breast: Reports: rash, erythema and skin pain Medications/Allergies Home Medications Medication Instructions Recorded Confirmed Last Taken Type acetaminophen 325 mg capsule 650 mg PO QID PRN pain or fever 07/02/24 07/02/24 07/02/24 05:00 History (Tylenol) apixaban 5 mg tablet (Eliquis) 5 mg PO DAILY 07/02/24 07/02/24 07/01/24 History furosemide 20 mg tablet 20 mg PO DAILY PRN LOWER 07/02/24 07/02/24 Unknown History EXTREMITIES potassium chloride 20 mEq 20 meq PO DAILY 07/02/24 07/02/24 07/01/24 History tablet,extended release promethazine 12.5 mg tablet 12.5 mg PO PRN PRN Nausea And 07/02/24 07/02/24 07/02/24 05:00 History Vomiting sennosides 8.6 mg-docusate sodium 1 tab PO PRN PRN Constipation 07/02/24 07/02/24 Unknown History 50 mg tablet (Senexon-S) venlafaxine 150 mg 150 mg PO DAILY 07/02/24 07/02/24 07/01/24 History capsule,extended release 24 hr venlafaxine 150 mg 150 mg PO DAILY 07/02/24 07/02/24 07/01/24 History capsule,extended release 24 hr Allergies Allergy/AdvReac Type Severity Reaction Status Date / Time gabapentin Allergy Unknown Verified 07/02/24 11:58 benzoyl peroxide AdvReac Mild unknown Verified 07/02/24 11:58 PFSH Acute 2 PFSH: Medical History History of biliary stent insertion Anxiety and depression Surgical History History of pancreatectomy History of bariatric surgery Family History Other CAD (coronary artery disease) Cancer Diabetes Social History Smoking and tobacco/nicotine status: never used tobacco/nicotine Alcohol intake: never Substance/Drug Use: never Vitals/I&O/Wt Last Vital Signs Temp 98.8 F 07/02/24 20:19 Pulse 113 H 07/02/24 21:05 Resp 17 07/02/24 21:05 BP 118/73 07/02/24 20:45 Pulse Ox 98 07/02/24 21:05 O2 Del Method Nasal Cannula 07/02/24 16:03 O2 Flow Rate 2 07/02/24 16:03 07/02/24 07/02/24 07/02/24 06:59 14:59 22:59 Intake Total 2049 Balance 2049 Weight last 48 hrs Weight 70.307 kg Physical Exam 2 Const: COMMON NORMALS: no acute distress and patient oriented x3 HENMT: COMMON NORMALS: normocephalic HEAD & SCALP: normocephalic Neck/C-Spine: COMMON NORMALS: no JVD Resp: COMMON NORMALS: normal respiratory effort, No retractions, No use of accessory muscles and clear to auscultation bilaterally AUSCULTATION: clear to auscultation bilaterally Cardio: COMMON NORMALS: no JVD, regular rate, regular rhythm, S1 normal heart sound present and S2 normal heart sound present RATE: regular rate RHYTHM: regular rhythm HEART SOUNDS: S1 normal heart sound present and S2 normal heart sound present GI: COMMON NORMALS: Normal to inspection, nondistended, normoactive bowel sounds present, Soft to palpation and non-tender Back/Pelvis: OTHER: External drainage catheter, right lateral abdominal wall, with surrounding erythema with purulent drainage Extremity: COMMON NORMALS: no calf tenderness and no pedal edema Neuro: COMMON NORMALS: patient oriented x3, CN's II-XII intact bilaterally and moves all extremities Psych: COMMON NORMALS: mental status grossly normal Skin: NARRATIVE SKIN EXAM: Edema, swelling, tenderness, extending from external drainage catheter, extending down the right flank, down to the right thigh, right hip, inner groin with erythema, swelling, tenderness Data 07/02/24 13:23 07/02/24 19:12 Micro: Microbiology 07/02/24 13:23 Blood Culture - Preliminary Blood SPECIMEN COLLECTED 07/02/24 13:27 Blood Culture - Preliminary Blood SPECIMEN COLLECTED A&P Assessment and plan (1) Cellulitis: (2) Sepsis: (3) UTI (urinary tract infection): Plan Cellulitis ? With concerns for myositis, deep tissue infection, possible necrotizing fasciitis ? With history of necrotizing fasciitis at surgical site ? Area of erythema extending from external catheter site, down to the right flank, right hip, right thigh, right inner groin -My concern is as patient has purulent drainage from her hepatobiliary drain, and the fluid that the hepatobiliary drain is putting out is more purulent more feculent appearing, she is potentially leaking bile along drain into subcutaneous soft tissue along drain site, resulting in cellulitis, deep tissue infection, infection along fascial plane ? CT scan Right kidney: RIGHT kidney is normal size. There are a few tiny cortical hypodensities. There is marked soft tissue thickening in the retroperitoneum. The thickening is along the anterior and posterior pararenal fascia and along the lateroconal fascia. There is a percutaneous drainage catheter entering anterior to the RIGHT kidney with the catheter extending inferiorly to terminate in the presacral region. There is continued soft tissue thickening with distortion of the normal architecture of the RIGHT psoas muscle and a small amount of fluid. Left kidney: Negative. There is mild soft tissue thickening along the along the lateral conal fascia and the posterior pararenal fascia. There is a prior tract in the soft tissues posterior to the LEFT kidney with no drainage catheter present. Aorta: Normal. Lymphadenopathy: There are a few mildly hypervascular lymph nodes in the RIGHT pelvis along the inguinal region and anterior pelvis. These are probably reactive. Free fluid: There is a small amount of free fluid in the pelvis. GI tract: Nondistended stomach. By history of prior gastric bypass. Mildly dilated small bowel loops with fluid. Small bowel loops are measuring up to 2.3 cm. At this time there is no high-grade obstruction. Several of the small bowel loops are closely associated with soft tissue thickening in extending along the paracolic gutter into the pelvis. Abdominal wall: Postsurgical changes along the anterior abdominal wall. Additional prior surgical or drainage defects along the RIGHT lateral abdominal wall. Pelvis: Mild soft tissue thickening extending along the RIGHT pelvis with presacral soft tissue thickening. Within the soft tissue thickening is a pigtail catheter. This is a catheter that enters over the RIGHT lateral abdomen. Uterus is anteverted. There is a small amount of free fluid along the tract. Several small low-attenuation lesions within the uterus. These may be fibroids. Bones: Unremarkable. -ESR 41, CRP 183, procal within normal limits Plan -Currently accepted at [facility], awaiting a bed -Given the erythema along the right thigh, right hip I am going to order a CT scan with IV contrast to assess this area -Vancomycin -Meropenem -Clindamycin for toxin inhibition -Monitor site very closely -Will have to reassess based upon CT scan findings as above, and clinical progress -Await blood cultures -Follow inflammatory markers -General Surgery has been consulted -Full code -Eliquis for DVT prophylaxis Urinary tract infection -Await callback from [facility] to assess kidneys, but CT scan findings as above does not show any radiographic evidence of pyelonephritis -UA shows greater than 100 WBCs, positive leukocyte esterase, does report increased urinary frequency -Follow urine cultures -Antibiotics as above Sepsis, sepsis features met given fevers, tachycardia, hypotension, elevated lactic acid, History of necrotizing pancreatitis -History of cholecystitis, status post cholecystectomy -S/p pancreatic resection -With pancreatic/hepatobiliary drain in place -Had postoperative complications with fevers while at [facility] on 05/01/2024 had a ERCP with common bile duct stent placed - Attestations 2 Medical Necessity Statement*: Patient requires hospitalization for cellulitis, deep tissue infection, possible necrotizing fasciitis, UTI, fevers, sepsis Diagnoses Cellulitis L03.90 Sepsis A41.9 UTI (urinary tract infection) N39.0
[2024-07-02 21:32] LABS: INR 1.16 (0.8-1.2)
[2024-07-02 21:51] LABS: Blood Urea Nitrogen 9 mg/dL (6-20); Calcium 7.7 mg/dL (8.5-10.5); Carbon Dioxide 32 mmol/L (22-29); Chloride 97 mmol/L (98-107); Cholesterol 152 mg/dL (0-200); Glomerular Filtration Rate 177.7 mL/min (90-130); Glucose 95 mg/dL (65-115); HDL Cholesterol 46 mg/dL (60-100); LDL Cholesterol Calculated 85 mg/dL (50-129); LDL HDL Ratio 1.85 RATIO (0.00-3.22); Magnesium 1.7 mg/dL (1.7-2.3); NT Pro B Type Natriuretic Pept 2025 pg/mL (0-125); Osmolality Calculated 284 mOsm/kg (285-295); Phosphorus 3.8 mg/dL (2.5-4.5); Sodium 138 mmol/L (136-145); Thyroid Stimulating Hormone 8.35 uIU/mL (0.27-4.20); Triglycerides 104 mg/dL (0-150)
[2024-07-02 21:52] LABS: Creatinine Clr Calc Pharmacy 185.7782
[2024-07-02 22:13] LABS: Covid PCR NEGATIVE (Negative); Influenza A NEGATIVE (Negative); Influenza B NEGATIVE (Negative); Respiratory Syncytial Virus Ce NEGATIVE (Negative)
[2024-07-02] MEDS: morphine 4 mg/mL SDV 1 mL 2 MG IVP (22:32)
[2024-07-02 22:40] LABS: Estmated Average Glucose 80; Hemoglobin A1C 4.4 % (4.0-6.0)
[2024-07-02] MEDS: clindamycin 600 MG/50 ML PREMIX 100 MG IV (23:03)
[2024-07-02] MEDS: promethazine 25 mg/mL SDV 1 mL 12.5 MG IM (23:42)
[2024-07-03] VITALS (35 sets, daily range): BP systolic 96–130; BP diastolic 67–96; PULSE 60–136; RESP 13–25; TEMP 37.1–37.6; O2SAT 19–100
--- NOTE | 2024-07-03 00:47 | PC.NURSE ---
Applied 2L NC due to patient O2 dropping when asleep.
[2024-07-03] MEDS: potassium chloride ER 20 mEq Tablet 40 MEQ PO (00:59)
[2024-07-03] MEDS: HYDROmorphone 1 mg/mL INJ 1 mL IVP ×5 (03:02→17:57)
[2024-07-03] MEDS: vancomycin 1,000 MG in sodium chloride 0.9% 250 ML 250 MG IV ×2 (03:44→11:24)
[2024-07-03] MEDS: meropenem 500 mg SDV IVP ×2 (05:44→14:16)
[2024-07-03] MEDS: clindamycin 600 MG/50 ML PREMIX 100 MG IV ×2 (05:46→14:16)
--- NOTE | 2024-07-03 06:59 | PC.NURSE ---
A line was drawn around the extent of the patient's skin redness on her right abdomen and hip at aproximately 2300 07/02/2024 shortly after patient arrived. At end of shift the skin redness had not spread past the line.
--- NOTE | 2024-07-03 07:42 | P.CONIM_ITS ---
Providers/Reason For Consult 2 Consulting Physician/Specialty*: General surgery Reason for Consult*: Soft tissue infection of the right flank Attending Physician: Randolph May MD Primary Care Provider: Ruby Ragsdale DO History of Present Illness History of Present Illness Maddie Darby is a 39 year old female with extensive surgical history, patient had sleeve gastrectomy in 2021, subsequently developed gallstones for which she underwent cholecystectomy at the beginning of 2023, this was complicated with bowel perforation which eventually resulted also in necrotizing pancreatitis requiring multiple abdominal interventions including extensive drainage of the pancreatic bed, she has been managed at [facility] in [place], currently she has 1 drain in the right flank and an open venting wound on the left flank. According to the patient she goes back to parents every couple of months to get additional debridement. Her drain output has remained high during all this time. She now presented to the hospital with redness and pain on the area of the drain of the right flank and extending into the upper thigh. Initial workup showed evidence of leukocytosis and CAT scan show evidence of intra-abdominal collection of fluid with some soft tissue cellulitis with no definitive collections and no other concerning features. Case was discussed by hospitalist team with [facility] hepatobiliary team, they have accepted the patient for ICU to ICU transfer, she has been admitted to our hospital for management until a bed is available in [facility]. Review of Systems 2 General: Reports: 10 or more systems reviewed and unremarkable except in HPI and below Medications/Allergies Home Medications Medication Instructions Recorded Confirmed Last Taken Type acetaminophen 325 mg capsule 650 mg PO QID PRN pain or fever 07/02/24 07/02/24 07/02/24 05:00 History (Tylenol) apixaban 5 mg tablet (Eliquis) 5 mg PO DAILY 07/02/24 07/02/24 07/01/24 History furosemide 20 mg tablet 20 mg PO DAILY PRN LOWER 07/02/24 07/02/24 Unknown History EXTREMITIES potassium chloride 20 mEq 20 meq PO DAILY 07/02/24 07/02/24 07/01/24 History tablet,extended release promethazine 12.5 mg tablet 12.5 mg PO PRN PRN Nausea And 07/02/24 07/02/24 07/02/24 05:00 History Vomiting sennosides 8.6 mg-docusate sodium 1 tab PO PRN PRN Constipation 07/02/24 07/02/24 Unknown History 50 mg tablet (Senexon-S) venlafaxine 150 mg 150 mg PO DAILY 07/02/24 07/02/24 07/01/24 History capsule,extended release 24 hr venlafaxine 150 mg 150 mg PO DAILY 07/02/24 07/02/24 07/01/24 History capsule,extended release 24 hr Allergies Allergy/AdvReac Type Severity Reaction Status Date / Time gabapentin Allergy Unknown Verified 07/02/24 11:58 benzoyl peroxide AdvReac Mild unknown Verified 07/02/24 11:58 Current Medications Generic Name Dose Route Start Last Admin Trade Name Freq PRN Reason Stop Dose Admin Hydromorphone HCl 1 mg 07/02/24 23:08 07/03/24 07:02 Hydromorphone 1 Mg/Ml Inj 1 Ml IVP 1 mg Q4H PRN Administration PAIN Sodium Chloride 1,000 mls @ 75 mls/hr 07/02/24 20:30 07/02/24 21:28 Sodium Chloride 0.9% IV 75 mls/hr .[id number] NICOLA Administration Clindamycin HCl/Dextrose 600 mg in 50 mls @ 100 mls/hr 07/02/24 22:18 07/03/24 05:46 Cleocin IV 100 mls/hr Q8H NICOLA Administration Protocol Vancomycin HCl 1,000 mg/ 250 mls @ 250 mls/hr 07/03/24 04:00 07/03/24 03:44 Sodium Chloride IV 250 mls/hr Q8H NICOLA Administration Meropenem 500 mg 07/02/24 22:18 07/03/24 05:44 Meropenem 500 Mg Sdv IVP 500 mg Q8H NICOLA Administration Protocol Pantoprazole Sodium 40 mg 07/02/24 21:00 07/02/24 21:29 Pantoprazole 40 Mg Sdv IVP 40 mg Q24H NICOLA Administration Promethazine HCl 12.5 mg 07/02/24 22:18 07/02/24 23:42 Promethazine 25 Mg/Ml Sdv 1 Ml IM 12.5 mg Q6H PRN Administration NAUSEA PFSH Acute 2 PFSH: Medical History History of biliary stent insertion Anxiety and depression Surgical History History of pancreatectomy History of bariatric surgery Family History Other CAD (coronary artery disease) Cancer Diabetes Social History Smoking and tobacco/nicotine status: never used tobacco/nicotine Alcohol intake: never Substance/Drug Use: never Vitals/I&O/Wt Last Vital Signs Temp 99.1 F 07/03/24 04:30 Pulse 124 H 07/03/24 06:02 Resp 19 H 07/03/24 07:02 BP 122/88 07/03/24 04:00 Pulse Ox 99 07/03/24 07:02 O2 Del Method Nasal Cannula 07/03/24 04:30 O2 Flow Rate 2 07/03/24 04:30 07/02/24 07/03/24 07/03/24 22:59 06:59 14:59 Intake Total 2800 / 2800 512 / 3312 Output Total 50 / 50 Balance 2800 / 2800 462 / 3262 Weight last 48 hrs Weight 155 lb 6.814 oz Weight 153 lb 3.54 oz Weight 155 lb Physical Exam 2 Narrative: General : Patient is well developed , no acute distress, oriented x3 Head : Normal cephalic, a-traumatic. Nose : Mucous membranes are without erythema. Lungs : Equal chest rise bilaterally, no use of accessory muscles, trachea is midline. CV : Rate and rhythm are normal. Abdomen : Patient had multiple surgical incisions in the abdomen, midline laparotomy incision is almost completely healed there is a small area on the top where there is a small open wound, left flank has a open wound tract with yellowish drainage. There is a drain on the right flank there is murky output from this drain there is erythema and edema of the right flank extending up to the upper portion of the right thigh, there is tenderness at the level of the Javon in the area of cellulitis but not at the level of the flank. There is no purulence draining around the tube on the wound. The wound has been marked by the hospitalist team yesterday night and appears to be stable in the markings Extremities : Right hide exam as detailed above Back : non-tender to palpation, no CVA tenderness. Data 07/02/24 13:23 07/02/24 21:02 Micro: Microbiology 07/02/24 13:23 Blood Culture - Preliminary Blood SPECIMEN COLLECTED 07/02/24 13:27 Blood Culture - Preliminary Blood SPECIMEN COLLECTED A&P Assessment and plan (1) Sepsis: (2) Cellulitis: Plan is a 39-year-old female with extensive surgical history and history of necrotizing pancreatitis being managed at [facility] in [place]. She presents with cellulitis of the right flank and upper thigh. At the moment does not appear to be signs of necrotizing soft tissue infection no need for immediate debridement, LRINEC score is 3, which correlates with low risk for necrotizing soft tissue infection. In the case of progression of the cellulitis she might require immediate debridement, unfortunately he debridement of the abdominal wall is needed repositioning of the drain will be necessary as is my clinical opinion that likely encephalitis is being caused by pancreatic fluid draining into the tissue which will perpetuate a infection if no repositioning of the drain is achieved. We cannot offer this service in our institution as this will require advanced capabilities as well as hepatobiliary surgeon in the staff. I have discussed with the patient regarding this finding and she is understanding and agreeable with the plan, will continue supportive care and antibiotic management and will continue with the plan to transfer to higher level of care as soon as a bed is available. Coding Level of Care Code Acute Code for [facility] Diagnoses Sepsis A41.9 Cellulitis L03.90
[2024-07-03] MEDS: potassium chloride ER 10 mEq Tablet 20 MEQ PO (08:07)
[2024-07-03] MEDS: oxyCODONE 5 mg IR Tab/Cap PO ×2 (08:07→14:54)
[2024-07-03] MEDS: HYDROmorphone 1 mg/mL INJ 1 mL 0.5 MG IVP (08:09)
[2024-07-03] MEDS: apixaban 5 mg Tablet PO (08:10)
[2024-07-03 08:38] LABS: Basophils % 0.3 %; Eosinophils % 0.3 %; Hematocrit 30.8 % (36-47); Lymphocytes % 13.5 %; Mean Corpuscular HGB Conc 30.2 g/dL (30-55); Mean Corpuscular Hemoglobin 30.6 pg (27-33); Mean Corpuscular Volume 101.3 fl (85-98); Mean Platelet Volume 9.5 fL (7.4-10.4); Monocytes # 0.3 10^3/uL (0.2-0.9); Monocytes % 4.7 %; Neutrophils # 5.83 10^3/uL (1.8-7.7); Neutrophils % 80.8 %; Nucleated Red Blood Cells % 0 %; Platelet Count 327 10^3/cmm (157-399); Red Blood Count 3.04 10^6/uL (3.85-5.65); Red Cell Distribution Width 14.6 % (12.1-15.1); White Blood Count 7.21 10^3/uL (3.29-11.43)
[2024-07-03 08:56] LABS: Alanine Aminotransferase 19 U/L (0-33); Albumin Level 2.2 g/dL (3.5-5.2); Alkaline Phosphatase 117 U/L (35-105); Anion Gap 14.3 (5-19); Aspartate Amino Transferase 29 U/L (0-32); Blood Urea Nitrogen 7 mg/dL (6-20); Calcium 7.3 mg/dL (8.5-10.5); Carbon Dioxide 25 mmol/L (22-29); Chloride 96 mmol/L (98-107); Creatinine Clr Calc Pharmacy 148.8067; Globulin 3.5 g/dL (1.3-4.6); Glomerular Filtration Rate 137.4 mL/min (90-130); Glucose 102 mg/dL (65-115); Magnesium 1.6 mg/dL (1.7-2.3); Osmolality Calculated 272 mOsm/kg (285-295); Potassium 3.3 mmol/L (3.5-5.1); Sodium 132 mmol/L (136-145); Total Bilirubin 0.4 mg/dL (0.15-1.2); Total Protein 5.7 g/dL (6.6-8.7)
[2024-07-03] MEDS: sodium chloride 0.9% 1,000 ML 75 ML IV (09:44)
--- NOTE | 2024-07-03 10:25 | PM.PN ---
Subjective Subjective: History and physical reviewed. Patient reports most of her pain is in her right thigh, tracking from her abdomen. Concerned about the erythema. Temperature elevations through the night, around 99 1. Persistently tachycardic. Medications: Reviewed: Yes Vitals/I&O/Wt Last Vital Signs Temp 99.0 F 07/03/24 08:30 Pulse 60 07/03/24 09:38 Resp 17 07/03/24 09:00 BP 125/82 07/03/24 08:30 Pulse Ox 94 07/03/24 09:38 O2 Del Method Room Air 07/03/24 09:38 O2 Flow Rate 2 07/03/24 07:00 07/02/24 07/03/24 07/03/24 22:59 06:59 14:59 Intake Total 2800 / 2800 512 / 3312 1320 / 1320 Output Total 50 / 50 300 / 300 Balance 2800 / 2800 462 / 3262 1020 / 1020 Weight last 48 hrs Weight 70.5 kg Weight 69.5 kg Weight 70.307 kg Physical Exam Narrative: General exam is white female, complaining of pain Neck is supple Cardiovascular tachycardic, regular Lungs clear Abdomen erythema, right lower abdomen with tracking into the right thigh. Drains noted. Dressing mid abdomen where she relates she had a wound VAC. Right flank drain with dark output. Erythema on the right side, extending to the thigh Data 07/03/24 08:30 07/03/24 08:30 Micro: Microbiology 07/02/24 13:23 Blood Culture - Preliminary Blood SPECIMEN COLLECTED 07/02/24 13:27 Blood Culture - Preliminary Blood SPECIMEN COLLECTED A&P Assessment and plan (1) Cellulitis: Patient with evidence of cellulitis Concern yesterday of possible necrotizing fasciitis, although no CT evidence for this currently. She was placed on clindamycin, meropenem, vancomycin No drainable abscess site was seen on CT There is concern from a surgery standpoint, that catheter drainage may be initiating this cellulitis, and the development of a necrotizing soft tissue infection could occur. They recommend transfer to her tertiary care hospital where her complicated medical issues in the past were addressed. I did talk with the surgeon today, who wanted an update on her clinical status which I gave. Although cellulitis is not better, it is not worse currently and clinically she is appropriate for medical surgical floor. (2) Sepsis: Awaiting blood cultures Blood pressure is stable May transfer to floor (3) UTI (urinary tract infection): Awaiting cultures Continue meropenem Plan Note her complicated stays regarding history of sleeve gastrostomy, then developing cholecystitis, then after cholecystectomy developing necrotizing pancreatitis, being hospitalized for an extended time at , then requiring transfer to [facility], then requiring transfer to [facility], been recovering in nursing facility before being home for 2 weeks and developing infection. Currently on anticoagulation with apixaban, reportedly 5 mg daily. This will need to be investigated for the utility. I do not see a diagnosis related to this, and the dosages only once daily which is not typical. Attestations Medical Necessity Statement*: Requires continued hospitalization for IV antibiotics secondary to sepsis Diagnoses Cellulitis L03.90 Sepsis A41.9 UTI (urinary tract infection) N39.0
--- NOTE | 2024-07-03 12:51 | PHA.VACGOAL ---
Vancomycin Goal - Goal Vancomycin Goal:: 10-15 mg/L (CELLULITIS) - Therapy Current therapy:: Clindamycin (600 MG IV Q8H) Day of therpy:: Day []of [] . Actual body weight (kg): 70.5 kg [place] body weight: 57 KG Dosing weight (kg): 70.5 KG - Data Labs: WBC 7.21 10^3/uL (3.29-11.43) 07/03/24 08:30 RBC 3.04 10^6/uL (3.85-5.65) L 07/03/24 08:30 Hgb 9.30 g/dL (11.27-16.99) L 07/03/24 08:30 Hct 30.8 % (36-47) L 07/03/24 08:30 MCV 101.3 fl (85-98) H 07/03/24 08:30 MCH 30.6 pg (27-33) 07/03/24 08:30 MCHC 30.2 g/dL (30-55) 07/03/24 08:30 RDW 14.6 % (12.1-15.1) 07/03/24 08:30 Sodium 132 mmol/L (136-145) L 07/03/24 08:30 Potassium 3.3 mmol/L (3.5-5.1) L 07/03/24 08:30 Chloride 96 mmol/L (98-107) L 07/03/24 08:30 Carbon Dioxide 25 mmol/L (22-29) 07/03/24 08:30 Anion Gap 14.3 (5-19) 07/03/24 08:30 BUN 7 mg/dL (6-20) 07/03/24 08:30 Creatinine 0.5 mg/dL (0.5-0.9) 07/03/24 08:30 GFR Calculation 137.4 mL/min (90-130) H 07/03/24 08:30 Last dialysis session:: N/A Drug administration history:: Medications Meropenem (Meropenem 500 Mg Sdv) 500 mg IVP Q8H NICOLA; Protocol Last Admin: 07/03/24 05:44 Dose: 500 mg Vancomycin HCl 1,000 mg/ (Sodium Chloride) 250 mls @ 250 mls/hr IV Q8H NICOLA Last Admin: 07/03/24 11:24 Dose: 250 mls/hr Discontinued Medications Vancomycin HCl 1,000 mg/ (Sodium Chloride) 250 mls @ 250 mls/hr IV ONCE ONE; Protocol Stop: 07/02/24 19:10 Last Admin: 07/02/24 20:18 Dose: Infused Meropenem (Meropenem 500 Mg Sdv) 500 mg IVP ONCE ONE; Protocol Stop: 07/02/24 16:04 Last Admin: 07/02/24 17:53 Dose: 500 mg Treatment plan:: new consult (TELEPHARMACY DOSED) Regimen:: 1 GM IVPB Q8H Follow up:: Vancomycin Trough scheduled for 07/03 @ 1900. Pharmacy will continue to monitor
--- NOTE | 2024-07-03 14:05 | PC.NURSE ---
Report called to [facility] second floor, patient to go to room 258.
--- NOTE | 2024-07-03 14:59 | PC.NURSE ---
Patient transferred via bed to room 258 on room air. Patient C/O pain right leg, assessed with [facility]. PO med available and to be given by [facility]. See MAR. All belongings at bedside, patient and family oriented to room and call light use.
--- NOTE | 2024-07-03 15:28 | PM.TDS ---
Transfer Summary Providers Date of Admission: 07/02/24 19:25 Date of Discharge/Transfer: 07/03/24 Attending Provider at Admission: Manuelito Zuñiga MD Attending Provider at Transfer: Randolph May MD Primary Care Provider: Ruby Ragsdale DO Transfer Plans: Anticipated date of transfer: 07/03/24. Diagnoses at Discharge Discharge Diagnosis (1) Cellulitis: Status: Acute (2) Sepsis: Status: Acute (3) UTI (urinary tract infection): Status: Acute Reason for Visit Reason for Visit Fever Hospital Course Hospital Course Patient is a 39-year-old white female with complex past medical history including sleeve gastrectomy, cholecystectomy, bowel leak, necrotizing pancreatitis, necrotizing fasciitis, biliary stent, pancreatic drain, previous PEG feeds, hospitalizations at [facility] that presented with fever, pain in her abdomen and thigh with evidence of cellulitis, UTI, sepsis to the emergency department. She was diagnosed with sepsis and UTI, as well as cellulitis. Concern with her pancreatic drain on the right, and its connection to the underlying cellulitis. No confirmatory CT findings of abscess or necrotizing fasciitis, but with some involvement of the drain site there was high concern this could occur, or pancreatic drainage was playing on a role in development of cellulitis. Surgery did evaluate the patient, and recommended transfer to a tertiary care hospital. Capacity was not available when the patient was in the emergency department, therefore blood cultures were initiated, IV antibiotics of meropenem and vancomycin started, along with clindamycin and patient was admitted to the ICU and then floor when stabilized. [facility] graciously excepted the patient and she was able to transfer on July 03. Patient desired transfer, she agreed to the risks and benefits of transfer, and I had spoken with the accepting physician earlier in the morning. She had not had any change in her overall stability. Vital signs were stable with the exception of heart rate of approximately 115, which had not changed since the night before. Blood pressure was 117/77, O2 sat 100% on 2 L. She had continued pain in the area of cellulitis in right thigh where it tracked. Neurovascular distally was intact. Physical Exam Narrative: See exam done earlier in the day TS Data Studies Completed and Pending Pending at discharge Category Date Time Status Blood Culture Stat Lab 07/02/24 13:27 Results CBC Auto Diff [Complete Blood Count w/Auto] AM LABS Lab 07/04/24 04:00 Ordered CMP [Comprehensive Metabolic Panel] AM LABS Lab 07/04/24 04:00 Ordered MAG [Magnesium] AM LABS Lab 07/04/24 04:00 Ordered Sputum Culture and Gram Stain Stat Lab 07/02/24 19:29 Uncollected Urine Culture Stat Lab 07/02/24 15:37 Received Vancomycin Trough Timed Lab 07/03/24 19:00 Ordered Completed Studies During Hospitalization Category Date Time Status CT abdomen pelvis w con* [id number] Stat Cat Scan 07/02/24 13:[address] femur RT w con [id number] Stat Cat Scan 07/02/24 20:07 Completed CXRP [XR chest 1V portable [id number]] Stat Exams 07/02/24 18:11 [place] [id number] Stat Ultrasound 07/03/24 21:39 Completed Laboratory Last Values WBC 7.21 10^3/uL (3.29-11.43) 07/03/24 08:30 RBC 3.04 10^6/uL (3.85-5.65) L 07/03/24 08:30 Hgb 9.30 g/dL (11.27-16.99) L 07/03/24 08:30 Hct 30.8 % (36-47) L 07/03/24 08:30 MCV 101.3 fl (85-98) H 07/03/24 08:30 MCH 30.6 pg (27-33) 07/03/24 08:30 MCHC 30.2 g/dL (30-55) 07/03/24 08:30 RDW 14.6 % (12.1-15.1) 07/03/24 08:30 Plt Count 327 10^3/cmm (157-399) 07/03/24 08:30 MPV 9.5 fL (7.4-10.4) 07/03/24 08:30 Neut % (Auto) 80.8 % 07/03/24 08:30 Lymph % (Auto) 13.5 % 07/03/24 08:30 Grainger % (Auto) 4.7 % 07/03/24 08:30 Eos % (Auto) 0.3 % 07/03/24 08:30 Baso % (Auto) 0.3 % 07/03/24 08:30 Neut # (Auto) 5.83 10^3/uL (1.8-7.7) 07/03/24 08:30 Lymph # (Auto) 1.0 10^3/uL (0.8-4.8) 07/03/24 08:30 Grainger # (Auto) 0.3 10^3/uL (0.2-0.9) 07/03/24 08:30 Eos # (Auto) 0.0 10^3/uL (0.0-0.8) 07/03/24 08:30 Baso # (Auto) 0.0 10^3/uL (0.0-0.1) 07/03/24 08:30 Nucleated RBC % (auto) 0 % 07/03/24 08:30 Nucleated RBCs # 0.0 /100WBC 07/03/24 08:30 ESR 42 mm/hr (0-15) H 07/02/24 13:23 PT 15.10 SECONDS (12.1-14.9) H 07/02/24 21:02 INR 1.16 (0.8-1.2) 07/02/24 21:02 Sodium 132 mmol/L (136-145) L 07/03/24 08:30 Potassium 3.3 mmol/L (3.5-5.1) L 07/03/24 08:30 Chloride 96 mmol/L (98-107) L 07/03/24 08:30 Carbon Dioxide 25 mmol/L (22-29) 07/03/24 08:30 Anion Gap 14.3 (5-19) 07/03/24 08:30 BUN 7 mg/dL (6-20) 07/03/24 08:30 Creatinine 0.5 mg/dL (0.5-0.9) 07/03/24 08:30 GFR Calculation 137.4 mL/min (90-130) H 07/03/24 08:30 Glucose 102 mg/dL (65-115) 07/03/24 08:30 Estimat Average Glucose 80 07/02/24 21:02 Hemoglobin A1c 4.4 % (4.0-6.0) 07/02/24 21:02 Calculated Osmolality 272 mOsm/kg (285-295) L 07/03/24 08:30 Lactic Acid 3.9 mmol/L (0.5-2.2) H 07/02/24 13:23 Lactic Acid (Sepsis) 2.5 mmol/L (0.5-2.2) H 07/02/24 16:55 Calcium 7.3 mg/dL (8.5-10.5) L 07/03/24 08:30 Phosphorus 3.8 mg/dL (2.5-4.5) 07/02/24 21:02 Magnesium 1.6 mg/dL (1.7-2.3) L 07/03/24 08:30 Total Bilirubin 0.4 mg/dL (0.15-1.2) 07/03/24 08:30 AST 29 U/L (0-32) 07/03/24 08:30 ALT 19 U/L (0-33) 07/03/24 08:30 Alkaline Phosphatase 117 U/L (35-105) H 07/03/24 08:30 Creatine Kinase 19 U/L (26-192) L 07/02/24 19:12 C-Reactive Protein 186.8 mg/L (0.0-4.9) H 07/02/24 19:12 NT-Pro-B Natriuret Pep 2025 pg/mL (0-125) H 07/02/24 21:02 Total Protein 5.7 g/dL (6.6-8.7) L 07/03/24 08:30 Albumin 2.2 g/dL (3.5-5.2) L 07/03/24 08:30 Globulin 3.5 g/dL (1.3-4.6) 07/03/24 08:30 Triglycerides 104 mg/dL (0-150) 07/02/24 21:02 Cholesterol 152 mg/dL (0-200) 07/02/24 21:02 LDL Cholesterol, Calc 85 mg/dL (50-129) 07/02/24 21:02 HDL Cholesterol 46 mg/dL (60-100) L 07/02/24 21:02 LDL/HDL Ratio 1.85 RATIO (0.00-3.22) 07/02/24 21:02 Cholesterol/HDL Ratio 3.30 mg/dL (0.0-4.40) 07/02/24 21:02 Lipase 17 U/L (13-60) 07/02/24 13:23 Procalcitonin 0.26 ng/mL (0-0.5) 07/02/24 19:12 TSH 8.35 uIU/mL (0.27-4.20) H 07/02/24 21:02 HCG, Qual Negative (Negative) 07/02/24 15:37 Urine Color Yellow (Yellow) 07/02/24 15:37 Urine Appearance Cloudy (CLEAR) A 07/02/24 15:37 Urine pH 7.0 (5-7) 07/02/24 15:37 Ur Specific [facility] 1.045 (1.005-1.030) H 07/02/24 15:37 Urine Protein 1+ (Negative) A 07/02/24 15:37 Urine Glucose (UA) Negative (Normal) 07/02/24 15:37 Urine Ketones Negative (Negative) 07/02/24 15:37 Urine Blood Trace (Negative) A 07/02/24 15:37 Urine Nitrate Negative (Negative) 07/02/24 15:37 Urine Bilirubin Negative (Negative) 07/02/24 15:37 Urine Urobilinogen 1.0 mg/dL (Negative) 07/02/24 15:37 Ur Leukocyte Esterase 2+ (Negative) A 07/02/24 15:37 Urine RBC 0-2 /hpf (0-2) 07/02/24 15:37 Urine WBC >100 /hpf (0-5) H 07/02/24 15:37 Ur Squamous Epith Cells 0-5 /hpf (0-5) 07/02/24 15:37 Amorphous Sediment Not Reportable 07/02/24 15:37 Urine Bacteria 4+ /hpf (NONE) H 07/02/24 15:37 Hyaline Casts 2.87 /lpf 07/02/24 15:37 Coronavirus (PCR) Negative (Negative) 07/02/24 20:59 Influenza A (PCR) Negative (Negative) 07/02/24 20:59 Influenza Type B (PCR) Negative (Negative) 07/02/24 20:59 RSV (PCR) Negative (Negative) 07/02/24 20:59 SARS-CoV-2 Ag (Rapid) negative (Negative) 07/02/24 14:00 Radiology Impressions Abdomen/Pelvis CT 07/02/24 13:08 IMPRESSION: 1. No prior studies are available and very limited surgical or clinical history concerning this complicated CT evaluation. 2. Prior cholecystectomy with a small amount of pneumobilia. 3. Atrophic pancreas. Probably prior episodes of pancreatitis. No acute pancreatitis. There is a very tiny fluid like collection close to the posterior pancreas measuring 1.1 x 1.3 cm which may be the residual of a pseudocyst. This appears to be a benign collection. 4. There is a common bile duct stent. No significant intrahepatic duct dilatation. 5. External drainage catheter begins along the RIGHT lateral abdominal wall with the catheter extending deep into the pelvis. Catheter is coiled in the presacral space. Adjacent to the pigtail catheter is complex soft tissue thickening but no definite abscess. 6. There is marked soft tissue thickening in the RIGHT anterior and posterior pararenal fascia with extensive soft tissue thickening extending along the RIGHT psoas muscle. Loss of the normal architecture of the RIGHT psoas muscle with scarring extending into the pelvis. 7. Mild LEFT pararenal fascial thickening. 8. Small LEFT pleural effusion. 9. Adverse change or improvement cannot be determined without prior imaging studies. Chest X-Ray 07/02/24 18:11 IMPRESSION: No acute findings. Femur CT 07/02/24 20:07 IMPRESSION: 1. Mild right hip edema, otherwise no acute right lower extremity abnormality. 2. Redemonstration of the dense intraperitoneal fluid extending into the pelvis with surgical drain in place. Venous Duplex 07/03/24 21:39 IMPRESSION: No evidence of deep vein thrombosis. Recent Clincial Data Last Vital Signs Temp 98.7 F 07/03/24 13:30 Pulse 119 H 07/03/24 14:06 Resp 18 07/03/24 14:54 BP 117/77 07/03/24 13:30 Pulse Ox 100 07/03/24 13:30 O2 Del Method Nasal Cannula 07/03/24 13:30 O2 Flow Rate 2 07/03/24 09:38 Vital Signs Temp Pulse Resp BP Pulse Ox O2 Del Method O2 Del Method 07/03/24 14:54 18 07/03/24 14:06 119 H 07/03/24 13:30 98.7 F 114 H 15 117/77 100 Nasal Cannula 07/03/24 13:00 117 H 18 110/81 99 Nasal Cannula 07/03/24 12:30 117 H 20 H 118/88 99 Nasal Cannula 07/03/24 12:00 136 H 20 H 108/78 98 Nasal Cannula 07/03/24 11:30 114 H 20 H 113/75 100 Nasal Cannula 07/03/24 11:25 13 100 07/03/24 11:00 112 H 18 120/85 100 Nasal Cannula 07/03/24 10:30 112 H 17 99/74 98 Nasal Cannula 07/03/24 10:00 119 H 17 112/75 98 Nasal Cannula 07/03/24 09:38 60 94 Nasal Cannula 07/03/24 09:30 115 H 16 96/67 98 Nasal Cannula 07/03/24 09:00 118 H 17 97 Nasal Cannula 07/03/24 08:30 99.0 F 117 H 17 125/82 97 Nasal Cannula 07/03/24 08:09 19 H 19 L 07/03/24 08:07 19 H 99 07/03/24 08:00 121 H 24 H 114/79 100 Nasal Cannula 07/03/24 07:30 132 H 19 H 101/68 97 Nasal Cannula 07/03/24 07:02 19 H 99 07/03/24 07:00 125 H 25 H 109/73 97 Nasal Cannula 07/03/24 06:02 124 H 07/03/24 04:30 99.1 F Nasal Cannula 07/03/24 04:00 126 H 24 H 122/88 100 Nasal Cannula 07/03/24 03:30 126 H 20 H 116/77 98 O2 Flow Rate O2 Flow Rate 07/03/24 14:54 07/03/24 14:06 07/03/24 13:30 07/03/24 13:00 07/03/24 12:30 07/03/24 12:00 07/03/24 11:30 07/03/24 11:25 07/03/24 11:00 07/03/24 10:30 07/03/24 10:00 07/03/24 09:38 2 07/03/24 09:30 2 07/03/24 09:00 07/03/24 08:30 07/03/24 08:09 07/03/24 08:07 07/03/24 08:00 07/03/24 07:30 07/03/24 07:02 07/03/24 07:00 2 07/03/24 06:02 07/03/24 04:30 2 07/03/24 04:00 2 07/03/24 03:30 Intake & Output/Weight 09/1907/02/24 07/03/24 07/04/24 06:59 06:59 06:59 06:59 Intake Total 3612 / 3612 1740 / 1740 Output Total 50 / 50 300 / 300 Balance 3562 / 3562 1440 / 1440 Weight 70.5 kg Vitals Last Vital Signs Temp 98.7 F 07/03/24 13:30 Pulse 119 H 07/03/24 14:06 Resp 18 07/03/24 14:54 BP 117/77 07/03/24 13:30 Pulse Ox 100 07/03/24 13:30 O2 Del Method Nasal Cannula 07/03/24 13:30 O2 Flow Rate 2 07/03/24 09:38 TS Medications Medications Acetaminophen (Acetaminophen 325 Mg Tablet) 650 mg PO Q6H PRN PRN Reason: Mild/Mod Pain Or Temp >/= 101 Apixaban (Apixaban 5 Mg Tablet) 5 mg PO DAILY [facility] Last Admin: 07/03/24 08:10 Dose: 5 mg Hydromorphone HCl (Hydromorphone 1 Mg/Ml Inj 1 Ml) 1 mg IVP Q4H PRN PRN Reason: PAIN Last Admin: 07/03/24 15:20 Dose: 1 mg Sodium Chloride (Sodium Chloride 0.9%) 1,000 mls @ 75 mls/hr IV .[id number] [facility] Last Admin: 07/03/24 09:44 Dose: 75 mls/hr Clindamycin HCl/Dextrose (Cleocin) 600 mg in 50 mls @ 100 mls/hr IV Q8H [facility]ICOLA; Protocol Last Infusion: 07/03/24 15:12 Dose: Infused Vancomycin HCl 1,000 mg/ (Sodium Chloride) 250 mls @ 250 mls/hr IV Q8H [facility]OLA Last Infusion: 07/03/24 13:46 Dose: Infused Meropenem (Meropenem 500 Mg Sdv) 500 mg IVP Q8H NICOLA; Protocol Last Admin: 07/03/24 14:16 Dose: 500 mg Naloxone HCl (Naloxone 0.4 Mg/Ml Sdv) 0.1 mg IVP Q2M PRN PRN Reason: OPIATERV Ondansetron HCl (Ondansetron 2 Mg/Ml Sdv 2 Ml) 4 mg IVP Q8H PRN PRN Reason: vomiting, or N/V if npo Oxycodone HCl (Oxycodone 5 Mg Ir Tab/Cap) 5 mg PO Q4H PRN PRN Reason: MODERATE PAIN Last Admin: 07/03/24 14:54 Dose: 5 mg Pantoprazole Sodium (Pantoprazole 40 Mg Sdv) 40 mg IVP Q24H [facility] Last Admin: 07/02/24 21:29 Dose: 40 mg Potassium Chloride (Potassium Chloride Er 10 Meq Tablet) 20 meq PO DAILY [facility] Last Admin: 07/03/24 08:07 Dose: 20 meq Promethazine HCl (Promethazine 25 Mg/Ml Sdv 1 Ml) 12.5 mg IM Q6H PRN PRN Reason: NAUSEA Last Admin: 07/02/24 23:42 Dose: 12.5 mg Senna/Docusate Sodium (Sennosides-Docusate Tablet) 1 tab PO PRN PRN PRN Reason: Constipation Venlafaxine HCl (Venlafaxine Er (24hr) 150 Mg Capsule) 150 mg PO DAILY [facility] Discontinued Medications Acetaminophen (Acetaminophen 325 Mg Tablet) 650 mg PO ONCE ONE Stop: 07/02/24 17:55 Last Admin: 07/02/24 18:01 Dose: 650 mg Enoxaparin Sodium (Enoxaparin 40 Mg/0.4 Ml Syringe) 40 mg SUBCUT Q24H [facility] Hydromorphone HCl (Hydromorphone 1 Mg/Ml Inj 1 Ml) 0.5 mg IVP ONCE ONE Stop: 07/02/24 13:09 Last Admin: 07/02/24 13:44 Dose: 0.5 mg Hydromorphone HCl (Hydromorphone 1 Mg/Ml Inj 1 Ml) 1 mg IVP ONCE ONE Stop: 07/02/24 17:05 Last Admin: 07/02/24 17:53 Dose: 1 mg Hydromorphone HCl (Hydromorphone 1 Mg/Ml Inj 1 Ml) 1 mg IVP ONCE ONE Stop: 07/02/24 19:18 Last Admin: 07/02/24 19:23 Dose: 1 mg Hydromorphone HCl (Hydromorphone 1 Mg/Ml Inj 1 Ml) 0.5 mg IVP ONCE ONE Stop: 07/03/24 07:40 Last Admin: 07/03/24 08:09 Dose: 0.5 mg Lactated Ringer's (Lactated Ringers) 1,000 mls @ 999 mls/hr IV .Q1H1M ONE Stop: 07/02/24 14:08 Last Infusion: 07/02/24 18:18 Dose: Infused Lactated Ringer's (Lactated Ringers) 1,000 mls @ 999 mls/hr IV .Q1H1M ONE Stop: 07/02/24 16:57 Last Infusion: 07/02/24 18:17 Dose: Infused Magnesium Sulfate (Magnesium Sulfate Premix) 2 gm in 50 mls @ 200 mls/hr IV ONCE ONE Stop: 07/02/24 17:23 Last Infusion: 07/02/24 19:03 Dose: Infused Vancomycin HCl 1,000 mg/ (Sodium Chloride) 250 mls @ 250 mls/hr IV ONCE ONE; Protocol Stop: 07/02/24 19:10 Last Infusion: 07/02/24 20:18 Dose: Infused Sodium Chloride (Sodium Chloride 0.9%) 500 mls @ 999 mls/hr IV .Q31M ONE Stop: 07/02/24 18:44 Last Infusion: 07/02/24 21:30 Dose: Infused Iohexol (Iohexol 350 Mg/Ml 500 Ml Btl (Per Ml)) 0 ml IV ONCE ONE Stop: 07/02/24 14:13 Last Admin: 07/02/24 14:12 Dose: 100 ml Iohexol (Iohexol 350 Mg/Ml 500 Ml Btl (Per Ml)) 0 ml IV ONCE ONE Stop: 07/02/24 22:04 Last Admin: 07/02/24 22:03 Dose: 80 ml Meropenem (Meropenem 500 Mg Sdv) 500 mg IVP ONCE ONE; Protocol Stop: 07/02/24 16:04 Last Admin: 07/02/24 17:53 Dose: 500 mg Metoclopramide HCl (Metoclopramide 5 Mg/Ml Sdv 2 Ml) 5 mg IVP ONCE ONE Stop: 07/02/24 13:09 Last Admin: 07/02/24 13:47 Dose: 5 mg Morphine Sulfate (Morphine 4 Mg/Ml Sdv 1 Ml) 4 mg IVP ONCE ONE Stop: 07/02/24 19:16 Last Admin: 07/02/24 19:19 Dose: Not Given Morphine Sulfate (Morphine 4 Mg/Ml Sdv 1 Ml) 2 mg IVP Q4H PRN PRN Reason: SEVERE PAIN Last Admin: 07/02/24 22:32 Dose: 2 mg Pantoprazole Sodium (Pantoprazole 40 Mg Sdv) 40 mg IVP Q24H [facility] Potassium Bicarbonate (Potassium Bicarb 25 Meq Tablet) 50 meq PO ONCE ONE Stop: 07/02/24 15:17 Last Admin: 07/02/24 15:47 Dose: 50 meq Potassium Chloride (Potassium Chloride Er 20 Meq Tablet) 40 meq PO ONCE ONE Stop: 07/03/24 00:42 Last Admin: 07/03/24 00:59 Dose: 40 meq Allergies gabapentin Allergy (Verified 07/02/24 11:58) Unknown benzoyl peroxide Adverse Reaction (Mild, Verified 07/02/24 11:58) unknown Home Medications acetaminophen 325 mg capsule (Tylenol) 650 mg PO QID PRN pain or fever 07/02/24 [History Confirmed 07/02/24] apixaban 5 mg tablet (Eliquis) 5 mg PO DAILY 07/02/24 [History Confirmed 07/02/24] furosemide 20 mg tablet 20 mg PO DAILY PRN LOWER EXTREMITIES 07/02/24 [History Confirmed 07/02/24] potassium chloride 20 mEq tablet,extended release 20 meq PO DAILY 07/02/24 [History Confirmed 07/02/24] promethazine 12.5 mg tablet 12.5 mg PO PRN PRN Nausea And Vomiting 07/02/24 [History Confirmed 07/02/24] sennosides 8.6 mg-docusate sodium 50 mg tablet (Senexon-S) 1 tab PO PRN PRN Constipation 07/02/24 [History Confirmed 07/02/24] venlafaxine 150 mg capsule,extended release 24 hr 150 mg PO DAILY 07/02/24 [History Confirmed 07/02/24] venlafaxine 150 mg capsule,extended release 24 hr 150 mg PO DAILY 07/02/24 [History Confirmed 07/02/24] Discharge Plan Discharge Patient Disposition: Xfer Short-Term Hosp Condition: Stable Prescriptions: No Action promethazine 12.5 mg tablet 12.5 mg PO PRN PRN (Reason: Nausea And Vomiting) Senexon-S 8.6-50 mg tablet 1 tab PO PRN PRN (Reason: Constipation) venlafaxine 150 mg capsule,extended release 24hr 150 mg PO DAILY furosemide 20 mg tablet 20 mg PO DAILY PRN (Reason: LOWER EXTREMITIES) Tylenol 325 mg Capsule 650 mg PO QID PRN (Reason: pain or fever ) Eliquis 5 mg tablet 5 mg PO DAILY potassium chloride 20 mEq tablet extended release 20 meq PO DAILY venlafaxine 150 mg capsule,extended release 24hr 150 mg PO DAILY Discharge Orders: Transfer Out of Facility (Order); Ordered 07/03/24 Ordered By: Randolph May Referrals: Ruby Ragsdale DO [Primary Care Provider] - Transfer Attestations Time Spent in Transfer Care: greater than 30 min Quality Metrics Clinical Quality Measures [ No reported AMI, CVA or VTE this stay] Coding Level of Care Code 54549 Total time (in minutes) for Discharge: 34 Diagnoses Cellulitis L03.90 Sepsis A41.9 UTI (urinary tract infection) N39.0
--- NOTE | 2024-07-03 15:38 | PC.NURSE ---
Report called to Yohana at [facility].
--- NOTE | 2024-07-03 21:39 | USR_ITS ---
PROCEDURE INFORMATION: Exam: US Duplex Lower Extremity Veins, Bilateral Exam date and time: 07/03/2024 7:58 AM Age: 39 years old Clinical indication: Edema, localized; Lower extremity, bilateral; Additional info: Swelling TECHNIQUE: Imaging protocol: Real-time duplex ultrasound of the bilateral extremities with 2-D farrell scale, color Doppler flow and spectral waveform analysis including responses to compression and other maneuvers (when performed) with image documentation. Complete exam focused on the lower extremity veins. COMPARISON: CT femur RT w con [id number] 07/02/2024 9:54 PM FINDINGS: Right deep veins: Unremarkable. The common femoral, femoral, proximal profunda femoral and popliteal veins are patent without thrombus. Normal Doppler waveforms. Normal compressibility and/or augmentation response. Left deep veins: Unremarkable. The common femoral, femoral, proximal profunda femoral and popliteal veins are patent without thrombus. Normal Doppler waveforms. Normal compressibility and/or augmentation response. Superficial veins: Greater saphenous veins at the saphenofemoral junctions are patent bilaterally without thrombus. Soft tissues: Unremarkable. US/CV venous duplex [facility] [id number] IMPRESSION: No evidence of deep vein thrombosis.
== END 2024-07-03 18:22 | disposition short-term general hospital (02) | DRG 872 ==
LOC: ER 18:11 → ICU 20:52 → MEDSURG 07-03 14:40
PROVIDERS: Emergency Medicine; Admitting Provider Family Medicine; Emergency Provider Emergency Medicine; PCP Family Medicine; Visit Provider Internal Medicine
DX: A41.9 Sepsis, unspecified organism (principal); T81.49XA Infection following a procedure, other surgical site, initial encounter; L03.311 Cellulitis of abdominal wall; N39.0 Urinary tract infection, site not specified; Y83.8 Other surgical procedures as the cause of abnormal reaction of the patient, or of later complication, without mention of misadventure at the time of the procedure; Z79.01 Long term (current) use of anticoagulants; Z98.84 Bariatric surgery status; Z90.49 Acquired absence of other specified parts of digestive tract
CPT/HCPCS: 0241U; 36415; 71045; 73701; 74177; 80048; 80053; 80061; 81001; 81025; 82550; 83036; 83605; 83690; 83735; 83880; 84100; 84132; 84145; 84443; 85025; 85610; 85651; 86140; 87040; 87077; 87086; 87186; 87426; 93005; 93970; 94664; 96365; 96367; 96372; 96375; 96376; 99285; J1170; J2185; J2270; J2470; J2550; J2765; J3370; J3475; J3490; J7030; J7040; J7050; J7120

== ENCOUNTER 2024-08-26 12:21 | Emergency (ER) | payer BC, SELFPAY ==
[2024-08-26 12:20] VITALS: BP 111/78; PULSE 104; RESP 20; TEMP 36.7; O2SAT 100; BMI 25.7
--- NOTE | 2024-08-26 12:31 | CT_ITS ---
WS: [id number] CT ABDOMEN AND PELVIS WITH CONTRAST HISTORY: Umbilical pain. TECHNIQUE: Imaging performed of the abdomen and pelvis with IV contrast. Single phase imaging of the abdomen. Coronal and sagittal reformats are submitted. All CT scans at [facility] use at [address] one of these dose optimization techniques: automated exposure control; mA and/or kV adjustment per patient size (includes targeted exams where dose is matched to clinical indication); or iterative re construction. IV CONTRAST: Omnipaque 350; 100 mL IV. Oral contrast: No DLP: 599.43 mGy.cm COMPARISON: 07/02/2024 Lower thorax: Mild dependent changes at the lung bases. Heart is normal size. No hiatal hernia. Liver/biliary system: Normal size liver with pneumobilia. Gallbladder: Prior cholecystectomy. Short common bile duct stent. Pancreas: Atrophic pancreas. Small loculated collection along the medial spleen. Spleen: Normal size spleen. No mass or infarct. Adrenal glands: Normal. Right kidney: No obstruction. Soft tissue thickening adjacent to the kidneys probably from a prior dr ain placement with removal. Left kidney: Normal. Aorta: Normal. Lymphadenopathy: None. Free fluid: Free fluid in the pelvis. GI tract: Surgical clips near the stomach antrum. Probably from prior perforation repair. No small zoe wel obstruction. No colon obstruction. There is fluid extending along the RIGHT paracolic gutter clos tete associated with the small bowel and colon. Fluid extends into the RIGHT pelvis. No identifiable a ir-containing abscess. The surgical drains that were noted in the RIGHT retroperitoneum and the RIGHT pelvis have been removed since 07/02/2024. Since the that prior study there is increasing fluid anter ior to the uterus. Abdominal wall: Postsurgical changes along the ventral abdominal wall. Pelvis: Midline uterus. Presacral soft tissue thickening. The drain has been removed. No increasing c ollection. Heterogeneous fibroid uterus. Bones: Unremarkable. CT/CT abdomen pelvis w con* [id number] IMPRESSION: 1. Previously noted drains in the RIGHT retroperitoneum and the RIGHT pelvis h ave been removed. There are small residual fluid collections and fascial thicke pavan but no increasing abscess. 2. New increasing free fluid in the pelvis just anterior to the bladder. This is not well loculated. Also there is increasing free fluid along the RIGHT para colic gutter encased by bowel. 3. Pneumobilia and prior cholecystectomy. 4. Common bile duct stent. Notified Jean-Paul Jay MD at 08/26/2024 2:22 PM.
--- NOTE | 2024-08-26 12:32 | W.ED.ABDPA2 ---
HPI - Abdominal Pain General: Chief Complaint: Abdominal Pain Stated Complaint: abd pain Time Seen by Provider: 08/26/24 12:23 Source: patient and EMS Mode of arrival: EMS Limitations: no limitations History of Present Illness: 39-year-old female who had a history of gallbladder surgery in November a had complications and of having a necrotizing pancreatitis she had been transferred to [place] and had open laparotomy and then was discharged to her prison states she was there till June and was discharged from there she states she has some chronic pain she takes Dilaudid for state today her pain is worse and she has diffuse abdominal pain she rates an 8 out of 10 denies any dysuria has had vomiting. Associated Symptoms: Reports nausea and vomiting; Denies chills, diarrhea, dysuria and fever(s) Related Data Home Medications Medication Instructions Recorded Confirmed apixaban 5 mg tablet (Eliquis) 5 mg PO BID 07/02/24 08/26/24 promethazine 12.5 mg tablet 12.5 mg PO PRN PRN Nausea And 07/02/24 08/26/24 Vomiting sennosides 8.6 mg-docusate sodium 1 tab PO PRN PRN Constipation 07/02/24 08/26/24 50 mg tablet (Senexon-S) venlafaxine 150 mg 150 mg PO DAILY 07/02/24 08/26/24 capsule,extended release 24 hr acetaminophen 325 mg tablet 325 mg PO QID PRN Pain 08/26/24 08/26/24 (Tylenol) hydromorphone 2 mg tablet 1 mg PO PRN PRN Pain 08/26/24 08/26/24 methocarbamol 750 mg tablet 750 mg PO PRN PRN Pain 08/26/24 08/26/24 Allergies Allergy/AdvReac Type Severity Reaction Status Date / Time gabapentin Allergy Unknown Verified 07/02/24 11:58 benzoyl peroxide AdvReac Mild unknown Verified 07/02/24 11:58 Review of Systems Const: Denies: fever(s), chills, body aches or change in appetite ENMT: Denies: throat pain or dental pain Card: Denies: chest pain Resp: Denies: dyspnea GI: Reports: abdominal pain, nausea and vomiting; Denies: diarrhea : Denies: dysuria Musc: Denies: neck pain or back pain Skin/Breast: Denies: rash Neuro: Denies: headache(s) [facility] PFSH: Medical History History of biliary stent insertion Anxiety and depression Surgical History History of pancreatectomy History of bariatric surgery Family History Other CAD (coronary artery disease) Cancer Diabetes Social History Smoking and tobacco/nicotine status: never used tobacco/nicotine Alcohol intake: never Substance/Drug Use: never Physical Exam Const: COMMON NORMALS: no acute distress, patient oriented x3 and healthy appearing HENMT: COMMON NORMALS: normocephalic and atraumatic HEAD & SCALP: normocephalic and atraumatic Eye: COMMON NORMALS: conjunctivae normal CONJUNCTIVA: Yes conjunctivae normal Neck/C-Spine: COMMON NORMALS: full ROM and supple Chest: COMMONS NORMALS: normal inspection of the chest Resp: COMMON NORMALS: normal respiratory effort, No retractions, No use of accessory muscles and clear to auscultation bilaterally AUSCULTATION: clear to auscultation bilaterally Cardio: COMMON NORMALS: regular rate, regular rhythm and No murmurs present (Cardio) RATE: regular rate RHYTHM: regular rhythm GI: COMMON NORMALS: Normal to inspection, nondistended, normoactive bowel sounds present, Soft to palpation and no masses PALPATION: Yes Soft to palpation OTHER: diffuse tenderness Extremity: COMMON NORMALS: normal to inspection and full ROM Neuro: COMMON NORMALS: patient oriented x3, moves all extremities and no focal motor deficits Psych: COMMON NORMALS: mental status grossly normal, Normal thought process present and cooperative THOUGHT PROCESS: Normal thought process present Skin: COMMON NORMALS: no rashes or lesions noted and no wounds GENERAL SKIN EXAM: no rashes or lesions noted Course Vital Signs: Vital signs: Vital Signs Temperature 98.1 F 08/26/24 12:20 Pulse Rate 89 08/26/24 14:44 Respiratory Rate 15 08/26/24 13:58 Blood Pressure 101/61 08/26/24 14:44 Pulse Oximetry 100 08/26/24 14:44 Oxygen Delivery Me thod Room Air 08/26/24 12:20 MDM - Abdominal Pain Medical Decision Making Patient presents with abdominal pain she feels much improved her abdominal exam at discharge benign her blood work is normal CT showed no acute findings here did inform her she needs to follow-up with her surgeon she is return if she has a fever or worsening pain she understands agrees to plan. Medical Records I reviewed the patient's medical records. Lab Data I reviewed the patient's lab results. 08/26/24 13:05 08/26/24 13:05 Labs/Radiology: Radiology Impressions Abdomen/Pelvis CT 08/26/24 12:31 IMPRESSION: 1. Previously noted drains in the RIGHT retroperitoneum and the RIGHT pelvis have been removed. There are small residual fluid collections and fascial thickening but no increasing abscess. 2. New increasing free fluid in the pelvis just anterior to the bladder. This is not well loculated. Also there is increasing free fluid along the RIGHT paracolic gutter encased by bowel. 3. Pneumobilia and prior cholecystectomy. 4. Common bile duct stent. Notified Jean-Paul Jay MD at 08/26/2024 2:22 PM. Laboratory Results WBC 5.61 10^3/uL (3.29-11.43) 08/26/24 13:05 RBC 3.79 10^6/uL (3.85-5.65) L 08/26/24 13:05 Hgb 11.40 g/dL (11.27-16.99) 08/26/24 13:05 Hct 35.2 % (36-47) L 08/26/24 13:05 MCV 92.9 fl (85-98) 08/26/24 13:05 MCH 30.1 pg (27-33) 08/26/24 13:05 MCHC 32.4 g/dL (30-55) 08/26/24 13:05 RDW 13.1 % (12.1-15.1) 08/26/24 13:05 Plt Count 299 10^3/cmm (157-399) 08/26/24 13:05 MPV 9.1 fL (7.4-10.4) 08/26/24 13:05 Neut % (Auto) 67.4 % 08/26/24 13:05 Lymph % (Auto) 22.3 % 08/26/24 13:05 [place] % (Auto) 7.7 % 08/26/24 13:05 Eos % (Auto) 1.8 % 08/26/24 13:05 Baso % (Auto) 0.4 % 08/26/24 13:05 Neut # (Auto) 3.79 10^3/uL (1.8-7.7) 08/26/24 13:05 Lymph # (Auto) 1.3 10^3/uL (0.8-4.8) 08/26/24 13:05 [place] # (Auto) 0.4 10^3/uL (0.2-0.9) 08/26/24 13:05 Eos # (Auto) 0.1 10^3/uL (0.0-0.8) 08/26/24 13:05 Baso # (Auto) 0.0 10^3/uL (0.0-0.1) 08/26/24 13:05 Nucleated RBC % (auto) 0 % 08/26/24 13:05 Nucleated RBCs # 0.0 /100WBC 08/26/24 13:05 Sodium 140 mmol/L (136-145) 08/26/24 13:05 Potassium 4.5 mmol/L (3.5-5.1) 08/26/24 13:05 Chloride 107 mmol/L (98-107) 08/26/24 13:05 Carbon Dioxide 25 mmol/L (22-29) 08/26/24 13:05 Anion Gap 12.5 (5-19) 08/26/24 13:05 BUN 25 mg/dL (6-20) H 08/26/24 13:05 Creatinine 0.4 mg/dL (0.5-0.9) L 08/26/24 13:05 GFR Calculation 177.7 mL/min (90-130) H 08/26/24 13:05 Glucose 104 mg/dL (65-115) 08/26/24 13:05 Calculated Osmolality 295 mOsm/kg (285-295) 08/26/24 13:05 Lactic Acid 1.4 mmol/L (0.5-2.2) 08/26/24 13:05 Calcium 8.3 mg/dL (8.5-10.5) L 08/26/24 13:05 Total Bilirubin 0.2 mg/dL (0.15-1.2) 08/26/24 13:05 AST 45 U/L (0-32) H 08/26/24 13:05 ALT 33 U/L (0-33) 08/26/24 13:05 Alkaline Phosphatase 109 U/L (35-105) H 08/26/24 13:05 Total Protein 7.2 g/dL (6.6-8.7) 08/26/24 13:05 Albumin 3.8 g/dL (3.5-5.2) 08/26/24 13:05 Globulin 3.4 g/dL (1.3-4.6) 08/26/24 13:05 Lipase 35 U/L (13-60) 08/26/24 13:05 HCG, Qual Negative (Negative) 08/26/24 13:05 Urine Color Yellow (Yellow) 08/26/24 13:37 Urine Appearance Clear (CLEAR) 08/26/24 13:37 Urine pH 5.5 (5-7) 08/26/24 13:37 Ur Specific [place] 1.023 (1.005-1.030) 08/26/24 13:37 Urine Protein Trace (Negative) A 08/26/24 13:37 Urine Glucose (UA) Negative (Normal) 08/26/24 13:37 Urine Ketones Negative (Negative) 08/26/24 13:37 Urine Blood 3+ (Negative) A 08/26/24 13:37 Urine Nitrate Negative (Negative) 08/26/24 13:37 Urine Bilirubin Negative (Negative) 08/26/24 13:37 Urine Urobilinogen 0.2 mg/dL (Negative) 08/26/24 13:37 Ur Leukocyte Esterase Negative (Negative) 08/26/24 13:37 Urine RBC >100 /hpf (0-2) H 08/26/24 13:37 Urine WBC 0-5 /hpf (0-5) 08/26/24 13:37 Ur Squamous Epith Cells 0-5 /hpf (0-5) 08/26/24 13:37 Amorphous Sediment Not Reportable 08/26/24 13:37 Urine Bacteria None seen /hpf (NONE) 08/26/24 13:37 Hyaline Casts 0-4 /lpf H 08/26/24 13:37 All radiology interpretation(s) finalized by discharge Discharge Plan Discharge Patient Disposition: Home Clinical Impression: Abdominal pain Condition: Stable Prescriptions: No Action promethazine 12.5 mg tablet 12.5 mg PO PRN PRN (Reason: Nausea And Vomiting) sennosides-docusate sodium [Senexon-S] 8.6-50 mg tablet 1 tab PO PRN PRN (Reason: Constipation) venlafaxine 150 mg capsule,extended release 24hr 150 mg PO DAILY Eliquis 5 mg tablet 5 mg PO BID acetaminophen [Tylenol] 325 mg Tablet 325 mg PO QID PRN (Reason: Pain) hydromorphone 2 mg tablet 1 mg PO PRN PRN (Reason: Pain) methocarbamol 750 mg tablet 750 mg PO PRN PRN (Reason: Pain) Discharge Orders: Discharge ED (Routine); Ordered 08/26/24 Ordered By: Jean-Paul Jay Referrals: Ruby Ragsdale DO [Primary Care Provider] - 4-7 days Discharge Diet: Advance as tolerated Discharge Activity: Resume usual activity Patient Instructions: Abdominal Pain (ED) Coding Level of Care Code ED Microbiology Coordinator for Joseph Ocasio
[2024-08-26 13:01] VITALS: RESP 18; O2SAT 100
[2024-08-26] MEDS: HYDROmorphone 1 mg/mL INJ 1 mL IVP (13:01)
[2024-08-26] MEDS: ondansetron 2 mg/ML SDV 2 mL 4 MG IVP (13:01)
[2024-08-26 13:03] VITALS: BP 102/77; PULSE 98; RESP 18; O2SAT 100
[2024-08-26] MEDS: sodium chloride 0.9% 1,000 ML 999 ML IV (13:03)
[2024-08-26 13:13] LABS: Basophils % 0.4 %; Eosinophils # 0.1 10^3/uL (0.0-0.8); Eosinophils % 1.8 %; Hematocrit 35.2 % (36-47); Lymphocytes # 1.3 10^3/uL (0.8-4.8); Lymphocytes % 22.3 %; Mean Corpuscular HGB Conc 32.4 g/dL (30-55); Mean Corpuscular Hemoglobin 30.1 pg (27-33); Mean Corpuscular Volume 92.9 fl (85-98); Mean Platelet Volume 9.1 fL (7.4-10.4); Monocytes # 0.4 10^3/uL (0.2-0.9); Monocytes % 7.7 %; Neutrophils # 3.79 10^3/uL (1.8-7.7); Neutrophils % 67.4 %; Nucleated Red Blood Cells % 0 %; Platelet Count 299 10^3/cmm (157-399); Red Blood Count 3.79 10^6/uL (3.85-5.65); Red Cell Distribution Width 13.1 % (12.1-15.1); White Blood Count 5.61 10^3/uL (3.29-11.43)
[2024-08-26 13:29] LABS: HCG, Serum Qual Negative (Negative)
[2024-08-26 13:32] LABS: Alanine Aminotransferase 33 U/L (0-33); Albumin Level 3.8 g/dL (3.5-5.2); Alkaline Phosphatase 109 U/L (35-105); Anion Gap 12.5 (5-19); Aspartate Amino Transferase 45 U/L (0-32); Blood Urea Nitrogen 25 mg/dL (6-20); Calcium 8.3 mg/dL (8.5-10.5); Carbon Dioxide 25 mmol/L (22-29); Chloride 107 mmol/L (98-107); Creatinine Clr Calc Pharmacy 185.7782; Globulin 3.4 g/dL (1.3-4.6); Glomerular Filtration Rate 177.7 mL/min (90-130); Glucose 104 mg/dL (65-115); Lipase 35 U/L (13-60); Osmolality Calculated 295 mOsm/kg (285-295); Potassium 4.5 mmol/L (3.5-5.1); Sodium 140 mmol/L (136-145); Total Bilirubin 0.2 mg/dL (0.15-1.2); Total Protein 7.2 g/dL (6.6-8.7)
[2024-08-26 13:35] LABS: Lactic Sepsis W/Reflex 1.4 mmol/L (0.5-2.2)
[2024-08-26] MEDS: iohexol 350 mg/mL 500 mL Btl (per mL) IV (13:52)
[2024-08-26 13:58] VITALS: PULSE 90; RESP 15; O2SAT 95
[2024-08-26 14:06] LABS: Bilirubin Urine Negative (Negative); Blood Urine 3+ (Negative); Glucose Urine UA Negative (Normal); Ketones Urine Negative (Negative); Leukocyte Esterase Urine Negative (Negative); Nitrate Urine Negative (Negative); Protein Urine Trace (Negative); Specific Gravity, Urine 1.023 (1.005-1.030); Urine Appearance Clear (CLEAR); Urine Color Yellow (Yellow); Urobilinogen Urine 0.2 mg/dL (Negative); pH Urine 5.5 (5-7)
[2024-08-26 14:12] LABS: Add Urine Microscopic? YES; Bacteria Urine None Seen /hpf; Hyaline Casts Urine 0-4 /lpf; RBC Urine >100 /hpf (0-2); Squamous Epithelial Cell Urine 0-5 /hpf (0-5); WBC Urine 0-5 /hpf (0-5)
[2024-08-26 14:19] LABS: Add Urine Culture? Yes
[2024-08-26 14:44] VITALS: BP 101/61; PULSE 89; O2SAT 100
== END 2024-08-26 14:45 | disposition home or self-care (01) ==
PROVIDERS: Emergency Provider Emergency Medicine; PCP Family Medicine
DX: R10.9 Unspecified abdominal pain (principal); Z79.01 Long term (current) use of anticoagulants
CPT/HCPCS: 74177; 80053; 81001; 83605; 83690; 84703; 85025; 87086; 96374; 96375; 99285; J1171; J2405; J7030

== ENCOUNTER 2024-11-17 16:15 | Emergency (ER) | payer BC, SELFPAY ==
[2024-11-17 17:14] VITALS: BP 104/72; PULSE 117; RESP 17; TEMP 36.8; O2SAT 98; BMI 28.3
[2024-11-17 19:42] LABS: Basophils % 0.3 %; Eosinophils # 0.1 10^3/uL (0.0-0.8); Eosinophils % 0.9 %; Hematocrit 39.6 % (36-47); Lymphocytes # 1.2 10^3/uL (0.8-4.8); Lymphocytes % 18.6 %; Mean Corpuscular HGB Conc 31.8 g/dL (30-55); Mean Corpuscular Hemoglobin 30.5 pg (27-33); Mean Corpuscular Volume 95.9 fl (85-98); Mean Platelet Volume 9.6 fL (7.4-10.4); Monocytes # 0.6 10^3/uL (0.2-0.9); Monocytes % 8.2 %; Neutrophils # 4.77 10^3/uL (1.8-7.7); Neutrophils % 71.4 %; Nucleated Red Blood Cells % 0 %; Platelet Count 326 10^3/cmm (157-399); Red Blood Count 4.13 10^6/uL (3.85-5.65); Red Cell Distribution Width 13.2 % (12.1-15.1); White Blood Count 6.68 10^3/uL (3.29-11.43)
[2024-11-17 20:02] LABS: Alanine Aminotransferase 412 U/L (0-33); Alkaline Phosphatase 198 U/L (35-105); Anion Gap 13.1 (5-19); Aspartate Amino Transferase 458 U/L (0-32); Blood Urea Nitrogen 16 mg/dL (6-20); Calcium 8.8 mg/dL (8.5-10.5); Carbon Dioxide 27 mmol/L (22-29); Chloride 106 mmol/L (98-107); Creatinine Clr Calc Pharmacy 155.1128; Globulin 3.7 g/dL (1.3-4.6); Glomerular Filtration Rate 137.4 mL/min (90-130); Glucose 54 mg/dL (65-115); Lipase 20 U/L (13-60); Osmolality Calculated 293 mOsm/kg (285-295); Potassium 4.1 mmol/L (3.5-5.1); Sodium 142 mmol/L (136-145); Total Bilirubin 0.3 mg/dL (0.15-1.2); Total Protein 7.7 g/dL (6.6-8.7)
[2024-11-17 20:15] LABS: HCG, Serum Qual Negative (Negative)
--- NOTE | 2024-11-17 21:34 | CTR_ITS ---
PROCEDURE INFORMATION: Exam: CT Abdomen And Pelvis With Contrast Exam date and time: 11/17/2024 9:52 PM Age: 39 years old Clinical indication: Abdominal pain; Epigastric; Prior surgery; Surgery date: 1-6 months; Surgery type: Abscess drain; Additional info: Epigastric pain, nausea vomiting, elevated lfts, normal bili TECHNIQUE: Imaging protocol: Computed tomography of the abdomen and pelvis with contrast. Radiation optimization: All CT scans at this facility use at least one of these dose optimization techniques: automated exposure control; mA and/or kV adjustment per patient size (includes targeted exams where dose is matched to clinical indication); or iterative reconstruction. Contrast material: OMNIPAQUE 350; Contrast volume: 100 ml; Contrast route: INTRAVENOUS (IV); COMPARISON: CT abdomen pelvis w con* [id number] 08/26/2024 1:49 PM RADIATION DOSE METRICS: Total DLP (mGy-cm): 718.28 FINDINGS: Liver: Unremarkable. Gallbladder and biliary ducts: Biliary stent in place with mild pneumobilia. Cholecystectomy. Pancreas: Unremarkable. Spleen: Unremarkable. Adrenal glands: Unremarkable. Kidneys and ureters: Unremarkable. No hydronephrosis. Stomach and bowel: Gastric postoperative changes. No mechanical bowel obstruction. Appendix: Unremarkable. Intraperitoneal space: Interval improvement of the fluid collections previously noted throughout the abdomen. Residual fascial thickening along the retroperitoneum and within the pelvis. Stable 1.4 x 1.2 cm walled-off fluid collection along medial aspect of the spleen (series 3, image 21). Vasculature: Unremarkable. Lymph nodes: Unremarkable. Urinary bladder: Unremarkable. Reproductive: Unremarkable. Bones/joints: Unremarkable. No acute fracture. Soft tissues: Midline anterior abdominal wall surgical changes. CT/CT abdomen pelvis w con* [id number] IMPRESSION: 1. Interval improvement of the fluid collections previously noted throughout the abdomen. Residual fascial thickening along the retroperitoneum and within the pelvis. 2. Stable small walled-off fluid collection along medial aspect of the spleen. 3. No new/acute abdominopelvic abnormality is appreciated.
--- NOTE | 2024-11-17 21:36 | W.ED.ABDPA2 ---
HPI - Abdominal Pain General: Chief Complaint: Abdominal Pain Stated Complaint: dr Topete sent over Time Seen by Provider: 11/17/24 20:04 History of Present Illness: Patient presents to the ER with complaints of upper abdominal epigastric pain. This started several days ago. She is also has some nausea vomiting during this time hot flashes and fatigue. She went to her PCP for lab work and an x-ray they told her she was severely constipated she has been taking MiraLAX and having multiple bowel movements every day for the last several days and this has not helped. Patient does have a history of necrotizing pancreatitis but she said this feels different. Patient has been able to eat and drink and keep a lot of it down and when she throws up she says is mainly just bile. Related Data Home Medications ?Medication ?Instructions ?Recorded ?Confirmed apixaban 5 mg tablet (Eliquis) 5 mg PO BID 07/02/24 08/26/24 promethazine 12.5 mg tablet 12.5 mg PO PRN PRN Nausea And 07/02/24 08/26/24 Vomiting sennosides 8.6 mg-docusate sodium 1 tab PO PRN PRN Constipation 07/02/24 08/26/24 50 mg tablet (Senexon-S) venlafaxine 150 mg 150 mg PO DAILY 07/02/24 08/26/24 capsule,extended release 24 hr acetaminophen 325 mg tablet 325 mg PO QID PRN Pain 08/26/24 08/26/24 (Tylenol) hydromorphone 2 mg tablet 1 mg PO PRN PRN Pain 08/26/24 08/26/24 methocarbamol 750 mg tablet 750 mg PO PRN PRN Pain 08/26/24 08/26/24 Allergies Allergy/AdvReac Type Severity Reaction Status Date / Time gabapentin Allergy Unknown Verified 11/17/24 17:19 benzoyl peroxide AdvReac Mild unknown Verified 11/17/24 17:19 Review of Systems General: Reports: 10 or more systems reviewed and unremarkable except in HPI and below PFSH ED PFSH: Medical History History of biliary stent insertion Anxiety and depression Surgical History History of pancreatectomy History of bariatric surgery Family History Other CAD (coronary artery disease) Cancer Diabetes Social History Smoking and tobacco/nicotine status: never used tobacco/nicotine Alcohol intake: never Substance/Drug Use: never Physical Exam Const: COMMON NORMALS: no acute distress, average body habitus, patient oriented x3, no limitations, healthy appearing, alert and well nourished HENMT: COMMON NORMALS: normocephalic, atraumatic, hearing grossly normal bilaterally, external ears normal and Normal external nose present HEAD & SCALP: normocephalic and atraumatic NOSE: Normal external nose present EXTERNAL EAR: Yes external ears normal Neck/C-Spine: COMMON NORMALS: no JVD Chest: COMMONS NORMALS: normal inspection of the chest and normal palpation of entire chest wall Resp: COMMON NORMALS: normal respiratory effort, No retractions, No use of accessory muscles and clear to auscultation bilaterally AUSCULTATION: clear to auscultation bilaterally Cardio: COMMON NORMALS: no JVD, regular rate, regular rhythm, S1 normal heart sound present, S2 normal heart sound present, No gallops present (Cardio), No clicks present (Cardio), No murmurs present (Cardio) and No rub (Cardio) RATE: regular rate RHYTHM: regular rhythm HEART SOUNDS: S1 normal heart sound present and S2 normal heart sound present GI: COMMON NORMALS: Normal to inspection, nondistended, normoactive bowel sounds present, Soft to palpation, No hepatosplenomegaly present and no masses; negative for non-tender (Tender to palpate upper abdomen worse midepigastric) PALPATION: Yes Soft to palpation and Yes No hepatosplenomegaly present Neuro: COMMON NORMALS: patient oriented x3 SENSORIUM/ORIENTATION: Yes alert Course Vital Signs: Vital signs: Vital Signs Temperature 98.2 F 11/17/24 17:14 Pulse Rate 117 H 11/17/24 17:14 Respiratory Rate 17 11/17/24 17:14 Blood Pressure 104/72 11/17/24 17:14 Pulse Oximetry 98 11/17/24 17:14 Oxygen Delivery Me thod Room Air 11/17/24 17:14 MDM - Abdominal Pain Medical Decision Making Lab work was reviewed, elevated LFTs with normal bilirubin, patient was given Zofran and Toradol which relieved her nausea and pain. Abdominal pelvic contrasted CT scan was essentially benign. These results was discussed with the patient. Patient did follow-up with her primary care within next week for recheck of her liver enzymes. Patient says she has pain medicine and nausea medicine at home. Medical Records I reviewed the patient's medical records. Lab Data I reviewed the patient's lab results. 11/17/24 19:15 11/17/24 19:15 Labs/Radiology: Radiology Impressions Abdomen/Pelvis CT 11/17/24 21:34 IMPRESSION: 1. Interval improvement of the fluid collections previously noted throughout the abdomen. Residual fascial thickening along the retroperitoneum and within the pelvis. 2. Stable small walled-off fluid collection along medial aspect of the spleen. 3. No new/acute abdominopelvic abnormality is appreciated. Laboratory Results WBC 6.68 10^3/uL (3.29-11.43) 11/17/24 19:15 RBC 4.13 10^6/uL (3.85-5.65) 11/17/24 19:15 Hgb 12.60 g/dL (11.27-16.99) 11/17/24 19:15 Hct 39.6 % (36-47) 11/17/24 19:15 MCV 95.9 fl (85-98) 11/17/24 19:15 MCH 30.5 pg (27-33) 11/17/24 19:15 MCHC 31.8 g/dL (30-55) 11/17/24 19:15 RDW 13.2 % (12.1-15.1) 11/17/24 19:15 Plt Count 326 10^3/cmm (157-399) 11/17/24 19:15 MPV 9.6 fL (7.4-10.4) 11/17/24 19:15 Neut % (Auto) 71.4 % 11/17/24 19:15 Lymph % (Auto) 18.6 % 11/17/24 19:15 [place] % (Auto) 8.2 % 11/17/24 19:15 Eos % (Auto) 0.9 % 11/17/24 19:15 Baso % (Auto) 0.3 % 11/17/24 19:15 Neut # (Auto) 4.77 10^3/uL (1.8-7.7) 11/17/24 19:15 Lymph # (Auto) 1.2 10^3/uL (0.8-4.8) 11/17/24 19:15 [place] # (Auto) 0.6 10^3/uL (0.2-0.9) 11/17/24 19:15 Eos # (Auto) 0.1 10^3/uL (0.0-0.8) 11/17/24 19:15 Baso # (Auto) 0.0 10^3/uL (0.0-0.1) 11/17/24 19:15 Nucleated RBC % (auto) 0 % 11/17/24 19:15 Nucleated RBCs # 0.0 /100WBC 11/17/24 19:15 Sodium 142 mmol/L (136-145) 11/17/24 19:15 Potassium 4.1 mmol/L (3.5-5.1) 11/17/24 19:15 Chloride 106 mmol/L (98-107) 11/17/24 19:15 Carbon Dioxide 27 mmol/L (22-29) 11/17/24 19:15 Anion Gap 13.1 (5-19) 11/17/24 19:15 BUN 16 mg/dL (6-20) 11/17/24 19:15 Creatinine 0.5 mg/dL (0.5-0.9) 11/17/24 19:15 GFR Calculation 137.4 mL/min (90-130) H 11/17/24 19:15 Glucose 54 mg/dL (65-115) L 11/17/24 19:15 Calculated Osmolality 293 mOsm/kg (285-295) 11/17/24 19:15 Calcium 8.8 mg/dL (8.5-10.5) 11/17/24 19:15 Total Bilirubin 0.3 mg/dL (0.15-1.2) 11/17/24 19:15 AST 458 U/L (0-32) H 11/17/24 19:15 ALT 412 U/L (0-33) H 11/17/24 19:15 Alkaline Phosphatase 198 U/L (35-105) H 11/17/24 19:15 Total Protein 7.7 g/dL (6.6-8.7) 11/17/24 19:15 Albumin 4.0 g/dL (3.5-5.2) 11/17/24 19:15 Globulin 3.7 g/dL (1.3-4.6) 11/17/24 19:15 Lipase 20 U/L (13-60) 11/17/24 19:15 HCG, Qual Negative (Negative) 11/17/24 19:15 All radiology interpretation(s) finalized by discharge Discharge Plan Discharge Patient Disposition: Home Clinical Impression: Abdominal pain, epigastric, Elevated liver enzymes Nausea & vomiting Qualifiers: Vomiting type: unspecified Qualified Code(s): R11.2 - Nausea with vomiting, unspecified Condition: Stable Prescriptions: No Action promethazine 12.5 mg tablet 12.5 mg PO PRN PRN (Reason: Nausea And Vomiting) sennosides-docusate sodium [Senexon-S] 8.6-50 mg tablet 1 tab PO PRN PRN (Reason: Constipation) venlafaxine 150 mg capsule,extended release 24hr 150 mg PO DAILY Eliquis 5 mg tablet 5 mg PO BID acetaminophen [Tylenol] 325 mg Tablet 325 mg PO QID PRN (Reason: Pain) hydromorphone 2 mg tablet 1 mg PO PRN PRN (Reason: Pain) methocarbamol 750 mg tablet 750 mg PO PRN PRN (Reason: Pain) Discharge Orders: Discharge ED (Routine); Ordered 11/17/24 Ordered By: Jovan Dugan Referrals: Ruby Ragsdale DO [Primary Care Provider] - 1 week Patient Instructions: Abdominal Pain (ED) Activity Restrictions/Additional Instructions: Your evaluation ER showed your liver enzymes were elevated. The abdominal CT scan was unremarkable. Please continue taking your pain medicine nausea medicine you have at home. Please follow-up with your primary care physician within next week for recheck of your liver enzymes. If your condition worsens please feel free to return to the ER. Print Language: Mauritanian Coding Level of Care Code ED Inside Trucker for Joseph Ocasio
[2024-11-17] MEDS: ketorolac 30 mg/mL INJ IVP (21:54)
[2024-11-17] MEDS: ondansetron 2 mg/ML SDV 2 mL 4 MG IVP (21:54)
[2024-11-17] MEDS: iohexol 350 mg/mL 500 mL Btl (per mL) IV (21:55)
[2024-11-17 23:05] VITALS: BP 135/105; PULSE 87; RESP 16; O2SAT 95
[2024-11-17 23:06] VITALS: BP 135/105; PULSE 87; O2SAT 95
== END 2024-11-17 23:07 | disposition home or self-care (01) ==
PROVIDERS: Physician Assistant; Emergency Provider Emergency Medicine; PCP Family Medicine
DX: R10.13 Epigastric pain (principal); R11.2 Nausea with vomiting, unspecified; R74.01 Elevation of levels of liver transaminase levels
CPT/HCPCS: 36415; 74177; 80053; 83690; 84703; 85025; 96374; 96375; 99285; J1885; J2405

== ENCOUNTER 2025-05-31 14:15 | Outpatient (CLI) | payer BC, SELFPAY ==
--- NOTE | 2025-05-31 14:45 | MR_ITS ---
WS: [id number] MRI/MRCP OF THE ABDOMEN WITHOUT GADOLINIUM ENHANCEMENT TECHNIQUE: Coronal T2 Fase BH, Axial T2 Fase BH, Axial T2 FS BH, Zxial 3D Jose BH, Axial DWI BH, 2D MRCP Radial BH, 3D MRCP (Resp), and Axial 3D Dyn BH Post sequences. CLINICAL INFORMATION: COMMON BILE DUCT STRICTURE COMPARISON: CT 2024 FINDINGS: Susceptibility artifact in the upper abdomen degrades some images Postoperative changes involving the stomach. Tiny esophageal hiatal hernia. Normal visualized pancreas. Prior cholecystectomy. Portal vein and splenic vein appear patent. Adrenal glands are normal. No hydronephrosis in either kidney. Normal caliber upper abdominal aorta. Celiac and SMA are patent. Common bile duct appears patent on the MRCP images. No evidence of high-grade stricture. No intrahepatic biliary ductal dilatation. MR/MR MRCP [id number] Impression: Some images are limited due to susceptibility artifact in the upper abdomen from gastric surgery. 1. Common bile duct appears patent. No evidence of high-grade stricture. No in trahepatic biliary ductal dilatation. 2. Prior cholecystectomy. 3. No other acute findings.
--- NOTE | 2025-05-31 14:46 | MR_ITS ---
WS: [id number] MRI/MRCP OF THE ABDOMEN WITHOUT GADOLINIUM ENHANCEMENT TECHNIQUE: Coronal T2 Fase BH, Axial T2 Fase BH, Axial T2 FS BH, Zxial 3D Jose BH, Axial DWI BH, 2D MRCP Radial BH, 3D MRCP (Resp), and Axial 3D Dyn BH Post sequences. CLINICAL INFORMATION: COMMON BILE DUCT STRICTURE FINDINGS: Images in the upper abdomen degraded due to susceptibility artifact from prior gastric surgery. This limits images in the upper anterior abdomen. Normal liver. Normal spleen. Portal vein and splenic vein appear patent. No hydronephrosis in either kidney. Adrenal glands appear normal. Visualized pancreas appears normal but limited visualization due to susceptibility artifact. Celiac and SMA appear patent. Normal caliber upper abdominal aorta. Common bile duct appears patent. Partially visualized umbilical hernia MR/MR abdomen wo/w con* [id number] Impression: Images limited due to susceptibly artifact from prior gastric surge ry 1. No acute findings in the abdomen considering limitations.
== END 2025-05-31 14:16 | disposition home or self-care (01) ==
LOC: RAD 14:18
PROVIDERS: PCP Family Medicine; Visit Provider Internal Medicine Gastroenterology
DX: K83.1 Obstruction of bile duct (principal)
CPT/HCPCS: 74181; 74183